=== PATIENT | male | born 1955 | race Caucasian/White ===

== ENCOUNTER 2021-08-24 05:26 | Emergency (ER) | payer MEDICARE, BC, SELFPAY ==
--- NOTE | ~2021-08-24 | XR_ITS ---
XR hand RT 2V DATE: 08/24/2021 06:00 INDICATION: Fall. First digit dislocation suspected. TECHNIQUE: Portable AP and lateral views COMPARISON: 02/10/2013 right hand FINDINGS: There is dislocation at the first metacarpophalangeal joint. No other fracture or dislocation is evident. IMPRESSION: Dislocation at the first metacarpophalangeal joint Reviewed, dictated and finalized at location A.
--- NOTE | ~2021-08-24 | XR_ITS ---
XR hand RT 2V DATE: 08/24/2021 06:14 INDICATION: Post reduction examination; dislocation of the first metacarpophalangeal joint TECHNIQUE: Portable AP and lateral views COMPARISON: 08/24/2021 prereduction right hand radiographs FINDINGS: There is reduction of the dislocation at the first metacarpophalangeal joint. No fracture i s evident. IMPRESSION: Reduction of first metacarpophalangeal joint dislocation Reviewed, dictated and finalized at location A.
[2021-08-24 05:41] VITALS: BP 159/105; PULSE 84; RESP 21; TEMP 36.6; O2SAT 99
--- NOTE | 2021-08-24 05:44 | ED.UPPEXIN ---
HPI - Extremity Injury (Upper) General Chief Complaint: Extremity Injury, Upper Stated Complaint: thumb injury Time Seen by Provider: 08/24/21 05:36 Source: patient History of Present Illness HPI narrative: Patient presents with hand injury. Patient ports he was walking down the hallway when he tripped on some clutter in the hallway and fell on outstretched hand. Noted immediate pain to his right thumb that is achy, constant, worse with any sort of movement of his hand, does not radiate. He also noted his thumb appeared deformed he was concern for broken finger so came to the ER for evaluation. He denies numbness reports he is right-hand dominant denies striking his head he denies use of any blood thinners denies any loss of conscious. Related Data Allergies Allergy/AdvReac Type Severity Reaction Status Date / Time lidocaine [From Xylocaine] Allergy Unknown Verified 08/24/21 05:45 Review of Systems Review of Systems: CONSTITUTIONAL: Denies fever, chills, or sweats. EYES: Denies visual changes, redness, or discharge. ENT: Denies rhinorrhea, congestion, sore throat, or otalgia. CARDIOVASCULAR: Denies chest pain, palpitations, or edema. RESPIRATORY: Denies cough or dyspnea. GASTROINTESTINAL: Denies abdominal pain, nausea, vomiting, or diarrhea. GENITOURINARY: Denies dysuria or hematuria. SKIN: Denies rash or itching. MUSCULOSKELETAL: Denies back pain, joint pain, or myalgia. NEUROLOGIC: Denies headache, numbness, dizziness, or weakness. PSYCHIATRIC: Denies anxiety or depression. All systems reviewed & are unremarkable except as noted in HPI and below Exam Narrative: GENERAL: Well-appearing, well-nourished, and in no acute distress. HEAD: Normocephalic, atraumatic. EYES: PERRLA and EOMI. ENT: Nares clear, no rhinorrhea or epistaxis. Mucous membranes moist. NECK: Supple. No masses. No JVD EXTREMITIES: Obvious deformity at the MCP joint of the first digit on the right hand there is exquisite tenderness to that area there is less than 2 seconds cap refill distal deformity with sensation intact to light touch. There is no focal tenderness at the snuffbox no limitation range of motion on the right wrist no other focal areas of bony tenderness on the right hand SKIN: Warm, dry, no rash. NEURO: No focal deficits. Alert and oriented x3. PSYCH: Normal mood and affect. Course Reevaluation(s) Reevaluation #1: Thumb spica in place. Patient's finger remains neurovascularly intact. Date: 08/24/21 Time: 06:45 Vital Signs Vital signs: Vital Signs Temperature 36.6 C 08/24/21 05:41 Pulse Rate 84 08/24/21 05:41 Respiratory Rate 21 H 08/24/21 05:41 Blood Pressure 159/105 H 08/24/21 05:41 Pulse Oximetry 99 08/24/21 05:41 Temperature 36.6 C 08/24/21 05:41 Pulse Rate 67 08/24/21 06:51 Respiratory Rate 13 08/24/21 06:51 Blood Pressure 147/95 H 08/24/21 06:51 Pulse Oximetry 98 08/24/21 06:51 Procedures Orthopedic Joint Reduction Joint #1: Orthopedic Joint Reduction Date: 08/24/21 Orthopedic Joint Reduction Time: 06:00 Time Out Performed: No Side: right Joint Reduction Location: finger Analgesia: none Pre-Procedure Neuro Vascular Exam: normal Local Anesthesia: none Technique used: traction/counter-traction Post-reduction neuro exam: intact Post-reduction vascular: intact Post Reduction X-Ray Obtained: Yes Post Reduction X-Ray Results: reduced Splint Applied: Yes Patient Tolerated Procedure: well Orthopedic Splinting/Casting Injury #1: Splinting/Casting Date: 08/24/21 Splinting/Casting Time: 06:36 Side: right Upper Extremity Injury Location: hand Upper Extremity Immobilizer: thumb spica Splint: customized in ED Pre-Procedure Neuro Vascular Exam: normal Post-Procedure Neuro Vascular Exam: normal MDM - Extremity Injury (Upper) MDM Narrative Medical decision kyaw
[2021-08-24 06:18] VITALS: BP 149/93; PULSE 72; RESP 14; O2SAT 100
[2021-08-24 06:51] VITALS: BP 147/95; PULSE 67; RESP 13; O2SAT 98
== END 2021-08-24 06:52 | disposition home or self-care (01) ==
PROVIDERS: Emergency Provider Emergency Medicine; PCP Registered Nurse
DX: S63.114A Dislocation of metacarpophalangeal joint of right thumb, initial encounter (principal); W18.09XA Striking against other object with subsequent fall, initial encounter
CPT/HCPCS: 26641; 26675; 26700; 73120; 99285

== ENCOUNTER 2021-10-10 11:00 | Outpatient (RCR) | payer MEDICARE, BC, SELFPAY ==
--- NOTE | 2021-09-05 13:29 | OTOPEVAL ---
OCCUPATIONAL THERAPY INITIAL EVALUATION REPORT 09/05/21 Thank you for referring Driss Olson to [facility].? The patient is scheduled to be seen for therapy? 1x/week for 4 weeks. Please review, sign, date and return this plan of care JOHANNA. I agree with and certify that the following plan of care is medically necessary. Referring Physician Date Referring Provider: Campos Holder MD *OT Outpatient Evaluation Start: 09/05/21 12:25 Therapy Assessment Status Assessment Status Assessment Status Evaluation Outpatient Past Medical History Past Medical History No Past Medical/Surgical History Patient/Family Denies Significant Past Medical/ Surgical History Evaluation Information Problem Diagnosis Stiff right 1st MP joint Cause Dorsal dislocation of MP joint 08/24/21 Prior Level of Function Activity Level (Last 3 Months) Occupation service parts driver Hand Dominance Right Activity of Daily Living Ability Independent Pain Assessment Timing of Pain Assessment Timing of Pain Assessment Assessment Pain Scale Pain Scale Used Numeric (1 - 10) Self Report Pain Assessment Right Thumb(s) Reported Pain Level 3 Lowest Pain Intensity 0 Greatest Pain Intensity 8 Pain Score Pain Score 3: Self Report Interventions Used Interventions Used By Clinicians Education,Paraffin Upper Extremity Range of Motion Wrist Range of Motion Right Reason Not Measured WNL/Right Finger Range of Motion Right Reason Not Measured WNL/Right Thumb Range of Motion Left Thumb MCP Flexion - Active 50 Thumb IP Flexion - Active 90 Thumb CMC Radial Abduction - Active 50 Thumb CMC Palmar Abduction - Active 60 Opposition to 2nd Digit Tip 0 Opposition to 3rd Digit Tip 0 Opposition to 4th Digit Tip 0 Opposition to 5th Digit Tip 0 Opposition to 5th Digit Base 0 Right Thumb MCP Flexion - Active 20 Thumb IP Flexion - Active 35 Thumb IP Flexion - Passive 70 Thumb CMC Radial Abduction - Active 50 Thumb CMC Palmar Abduction - Active 60 Opposition to 2nd Digit Tip 0 Opposition to 3rd Digit Tip 0 Opposition to 4th Digit Tip 0 Opposition to 5th Digit Tip 0 Opposition to 5th Digit Base 4 Thumb Range of Motion Comments When trying to oppose to the base of V, the thumb reaches the DIP of V only due to stiffness and pain at the MCP joint. Palpation Assessment Palpation Palpation Pain with palpation to the ulnar aspect of the thumb's
--- NOTE | 2021-10-02 12:04 | OTOPEVAL ---
OCCUPATIONAL THERAPY RE-EVALUATION REPORT 10/02/21 Patient presents today for OT re-evaluation. Today is just shy of 6 weeks post injury. His ROM has returned to normal limits, with pain reaching 6/10 with maximal thumb opposition. Business Change Manager and pinch strength measurements today show residual weakness and increase in pain to 8/10 with pinch strength testing. Instructed in gentle strengthening and recommended that he completes only if pain is 3/10 or less with these exercises. He may be over stressing the joint with how often he is completing his ROM exercises. The plan moving forward - begin light resistive strengthening to help with the stability of the MCP joint, continue to work on functional mechanics and stability, and progress as pain allows. Plan to have patient follow up weekly to assess progress and will send another formal reassess report in 4 weeks. Thank you for referring Driss [facility]anneth [facility] The patient is scheduled to be seen for therapy?1x/week for 4 weeks. Please review, sign, date and return this plan of care JOHANNA. I agree with and certify that the following plan of care is medically necessary. Referring Physician Date Referring Provider: Campos Holder MD *OT Outpatient Re-Evaluation Start: 09/05/21 12:25 Problem Diagnosis Stiff right 1st MP joint Cause Dorsal dislocation of MP joint 08/24/21 Subjective Information OT began on 09/05/21 and he Query Text:As Reported By Patient/ has participated in 4 sessions Family . He verbalizes excellent compliance with HEP. He states that since beginning therapy he has made a lot of progress - noting less pain and improved mobility of the thumb. He states he no longer has burning/shooting pain up the thumb, only feeling it in the palm. He does not wear the thumb spica brace at home, only when leaving the home. States he's having difficulty with strength. He reports being unable to use his left thumb to push in the button on his shifter in his car. Picking up cylindrical objects , such as cups, continues to be uncomfortable, rating at 3/ 10 pain. Pain Assessment Timing of Pain Assessment Timing of Pain Assessment Assessment Pain Scale Pain Scale Used Numeric (1 - 10) Self Report Pain Assessment Right Thumb(s) Reported Pain Level 2 Lowest Pain Intensity 2 Greatest Pain Intensity 6 Pain Score Pain Score 2: Self Report Additi
--- NOTE | 2021-11-05 13:00 | PCOTNOTE ---
OCCUPATIONAL THERAPY DISCHARGE NOTIFICATION 11/05/21 Patient:Driss Olson Date of :1955 Driss was re-assessed by therapy on 10/02/21 where the plan was to continue to progress resistive exercise to further increase the stability and mechanics of the thumb. He only attended 1 follow up session after that re-eval where he was issued his final HEP. Another formal re-evaluation was not completed. He has been following up with MD for injections and further return to work recommendations. Called the patient today and discussed discharging from therapy as he has all the necessary materials at this time. He verbalized that he is in agreement with this plan. He does state his thumb continues to have pain with hand use, however. It does not appear that additional therapy will be beneficial as he is independent with all exercises. Would strongly recommend that he relaxes on how often he does the exercises as he tends to be over stressing the thumb during this period of healing. If you feel as though additional therapy visits are needed in the future, please don't hesitate to send him back. Thank you for referring this patient to [facility]. Please review, sign, date and return this discharge summary JOHANNA. I have been updated about the patient's current status and I agree with discharge from the above service at this time. Referring Physician Date Referring Provider: Campos Holder MD
== END 2021-11-06 10:14 | disposition home or self-care (01) ==
LOC: ANHOT 11:00
PROVIDERS: PCP Registered Nurse; Visit Provider Plastic Surgery
DX: M25.641 Stiffness of right hand, not elsewhere classified (principal)
CPT/HCPCS: 97018; 97110; 97165

== ENCOUNTER 2021-11-12 10:20 | Outpatient (CLI) | payer MEDICARE, BC, SELFPAY ==
--- NOTE | ~2021-11-12 | US_ITS ---
EXAMINATION: US carotid duplex BI DATE: 11/12/2021 11:09 INDICATION: TECHNIQUE: Grayscale, color Doppler, and pulsed Doppler images of the cervical carotid arteries were obtained. The degree of vessel stenosis is placed in one of the following categories: normal, <50%, 5 0-69%, >=70% but less than near-occlusion, near-occlusion, or total occlusion. Note that percent sten osis relative to normal distal artery lumen diameter is indirectly measured from velocity measurement s as described by Joaquín, et al. Radiology 2003; 229:340-346. Notes: Normal: Peak systolic velocity <125 centimeters/sec and no plaque <50%. Peak systolic velocity <125 ( EDV <40; ICA/CCA PSV ratio <2.0; used these factors only a tandem lesions or low cardiac output or co ntralateral disease) 50-69 %: PSV 125-230 (EDV 40-100; ratio 2-4) >= 70% but less than near occlusion: PSV greater than 230 (EDV > 100; ratio> 4.0) Near Occlusion: PSV that is variable; markedly narrowed lumen Occlusion: Absent flow on color/spectral Doppler and no lumen on gallegos scale. COMPARISON: None. FINDINGS: RIGHT: The right common carotid artery (CCA) peak systolic velocity (PSV) is 79 cm/s. The right internal car otid artery (ICA) PSV is 58 cm/s. The right ICA end-diastolic velocity (EDV) is 22 cm/s. The right IC A/CCA PSV ratio is 0.7. The external carotid artery (ECA) PSV is 55 cm/s. There is antegrade flow in the right vertebral artery. LEFT: The left CCA PSV is 66 cm/s. The left ICA PSV is 54 cm/s. The left ICA EDV is 20 cm/s. The left ICA/C CA PSV ratio is 0.8. The ECA PSV is 67 cm/s. There is antegrade flow in the left vertebral artery. IMPRESSION: 1. Less than 50% stenosis in the right internal carotid artery by sonographic criteria. 2. Less than 50% stenosis in the left internal carotid artery by sonographic criteria. Reviewed, dictated and finalized at location A. AL CLERK IMPRESSION: 1. Less than 50% stenosis in the right internal carotid artery by sonographic boston raya. 2. Less than 50% stenosis in the left internal carotid artery by sonographic albert joyner.
== END 2021-11-12 10:21 | disposition home or self-care (01) ==
LOC: ANHIMG 10:27
PROVIDERS: PCP Registered Nurse; Visit Provider Registered Nurse
DX: R42 Dizziness and giddiness (principal); I65.23 Occlusion and stenosis of bilateral carotid arteries
CPT/HCPCS: 93880

== ENCOUNTER 2022-01-01 10:32 | Outpatient (CLI) | payer MEDICARE, SELFPAY ==
--- NOTE | 2022-01-04 18:06 | WPDHOLTEREM ---
Holter/Event Monitor Holter/Event Monitor Date of procedure: 01/01/22 Holter/Event Procedure: 48 Hr Holter Monitor Indications: Palpitations Conclusion: 1. 48 hour holter monitor on 01/01/22. 2. Underlying rhythm is sinus rhythm. HR range 48-119 bpm; average HR 74 bpm. 3. There are 162 premature supraventricular complexes and 2 supraventricular triplets. No supraventricular tachycardia. 4. There are 198 premature ventricular complexes, 2 ventricular couplets, and 30 ventricular bigeminy. No ventricular tachycardia. 5. No sinoatrial or atrioventricular blocks. No significant pauses greater than 2 seconds. 6. Patient reports symptoms of racing heart, sweating, shortness of breath, dizziness, heart pounding which demonstrate sinus rhythm, HR range 67-100 bpm with one episode with PVC's.
== END 2022-01-01 10:33 | disposition home or self-care (01) ==
PROVIDERS: PCP Registered Nurse; Visit Provider Registered Nurse
DX: R00.2 Palpitations (principal)
CPT/HCPCS: 93225; 93226

== ENCOUNTER → 2023-09-16 08:46 | Outpatient (CLI) | payer MEDICARE, SELFPAY ==
--- NOTE | ~2023-09-16 | US_ITS ---
EXAMINATION: US aorta [facility] scr[facility] DATE: 09/16/2023 09:01 INDICATION: Abdominal aortic aneurysm screening. TECHNIQUE: Grayscale, color Doppler, and pulsed Doppler images of the aorta and common iliac arteries were obtained. COMPARISON: None. FINDINGS: The aorta is normal in caliber. The right common iliac artery is normal in caliber. The left common i liac artery is normal in caliber. IMPRESSION: 1. No abdominal aortic aneurysm. Reviewed, dictated and finalized at location E.
== END ==
PROVIDERS: PCP Internal Medicine Cardiovascular Disease; Visit Provider Registered Nurse
DX: Z13.6 Encounter for screening for cardiovascular disorders (principal); Z87.891 Personal history of nicotine dependence
CPT/HCPCS: 76706

== ENCOUNTER 2024-06-21 13:54 | Outpatient (CLI) | payer MEDICARE, SELFPAY ==
--- NOTE | 2024-06-21 15:08 | ECG_ITS ---
Test Date: 2024-06-21 15:19:01 Measurements Intervals [place] Rate: 68 P: 39 KS: 172 QRS: 71 QRSD: 114 T: 26 QT: 385 QTc: 411 Interpretive Statements SINUS RHYTHM INCOMPLETE RIGHT BUNDLE BRANCH BLOCK [90+ ms QRS DURATION, TERMINAL R IN V1/V2, 40+ ms S IN I/aVL/V4/V5/V6] NONDIAGNOSTIC SMALL INFERIOR Q-WAVE BORDERLINE ECG No previous ECG available for comparison Electronically Signed On 06-21-2024 17:20:03 CDT by Harrison Cruz M.D.
[2024-06-21 16:23] LABS: Urine Cotinine NEGATIVE
[2024-06-21 16:57] LABS: Hemoglobin A1C 6.6 % (<5.7)
== END 2024-06-21 13:55 | disposition home or self-care (01) ==
LOC: ANHSURGERY 14:01
PROVIDERS: PCP Registered Nurse; Visit Provider Orthopaedic Surgery
DX: M17.11 Unilateral primary osteoarthritis, right knee (principal); Z01.818 Encounter for other preprocedural examination; I45.10 Unspecified right bundle-branch block
CPT/HCPCS: 80307; 83036; 87081; 87181; 93005

== ENCOUNTER 2024-07-12 01:29 | Day surgery (SDC) | payer MEDICARE, SELFPAY ==
[2024-06-21 14:07] VITALS: BMI 34.0
--- NOTE | 2024-06-21 14:45 | PC.NURSE ---
Addendum entered by Shari Juarez RN 06/21/24 14:52: MAY TAKE TYLENOL IF NEEDED FOR PAIN Original Note: Report to the Outpatient Waiting Room, entrance under the green pavilion located off [facility], at time ___6:00 AM____ on date _07/12/24 . Planned Procedure Time: ___7:30 AM . Time changes happen often and if your time is changed the preop area will call you the afternoon before. - You and your visitor will be asked to self-screen and do not enter if you have any COVID symptoms. - A mask is optional within the hospital at this time. Patients may have clear liquids (water, carbonated beverages, clear teas, apple juice) until 3 hours prior to surgery (4:30AM)with a maximum of 20 ounces. - No food from midnight until time of surgery - Infants may have breast milk until 4 hours before surgery, infant formula 6 hours prior to surgery. - Children will be allowed to drink immediately following surgery. If applicable, please bring a bottle or sippy cup to assist with drinking. Juice, water, soda, and popsicles are readily available. For infants on formula, please bring formula the day of surgery. Pacifiers are allowed. Take the following medications with a SIP of water the morning of surgery: ___NONE DO NOT STOP ANY OF YOUR OTHER PRESCRIPTION MEDICATIONS PRIOR TO SURGERY ?EXCEPT THE FOLLOWING Medications to discontinue per physician __HOLD DICLOFENAC 7 DAYS PRE OP PER DR SARAVIA LAST DOSE 07/04/24___MAY CONTINUE ASPIRIN BUT DON'T TAKE MORNING OF SURGERY PER DR SARAVIA. HOLD ALL VITAMINS AND SUPPLEMENTS 3 DAYS PRE OP PER ANESTHESIA.LAST DOSE 07/08/24 Please no make-up, nail armenian, hairspray, perfume, deodorant, or body powder the day of surgery. No jewelry (including any body piercings) or valuables the day of surgery, leave them at home. Please take a shower or bath the night before, or the morning of, surgery with an antibacterial soap. Wear comfortable, loose fitting clothing. Children are encouraged to wear pajamas. - Jewelry must be removed prior to entering the operating room. Rings and piercings that are not removed may be cut off. - The hospital will not accept responsibility for valuables. - Please leave all valuables, including medications, at home the day of surgery. If you are going home after surgery, a licensed bus driver must drive you home. - NO public transportation without another adult if you receive anesthesia. - We recommend that an adult stay with you for 24 hours following discharge. - We also recommend that you do not drive, make important decision, drink alcoholic beverages, or take any drugs that were not prescribed by your health care provider for at least 24 hours after your discharge ty Follow any additional instructions given to you from your surgeon. If you or anyone in your household have experienced Covid symptoms in the past week, please notify your surgeon or the nurse liaison at the phone number below for possible testing. VERBAL AND WRITTEN instructions given to __PATIENT AND AMADA and asked if any additional questions and then verbalized understanding. Patient advised to call surgeon office or pre surgery nurse liaison [phone] if any additional questions.
[2024-06-21 15:10] VITALS: BP 135/85; PULSE 73; RESP 18; TEMP 36.6; O2SAT 97
--- NOTE | 2024-07-09 08:56 | PM.IMHP ---
H&P: HPI History of Present Illness Date/Time: 07/09/24 08:56 Chief Complaint: 69-year-old male who presents today for a right total knee arthroplasty. He has been having pain in this knee for years. He has moderately severe medial compartment osteoarthritis. He has been on diclofenac 75 mg once a day for several years. He has had cortisone injections in the past. Last 1 was in February of this year which gave him minimal improvement of his symptoms. Patient has reached a point where he feels the knee is bothering him on a daily basis and he is ready proceed with total knee arthroplasty at this point. Review of Systems Review of Systems: All systems reviewed & are unremarkable except as noted in HPI and below PMFSH Past Medical History Medical History Cancer Diabetes GERD (gastroesophageal reflux disease) Hearing loss, bilateral Prostate calculus Subjective tinnitus of both ears Surgical History Surgical History History of appendectomy History of arthroscopic knee surgery right x 2 History of prostate surgery Family History Family History Father Cancer Heart disease Mother Cancer Hypertension Heart disease Sibling Cancer Social History Social History (Updated 05/19/24 @ 10:14 by Brit Verduzco CMA) Smoking packs per day: 1 Smoking cigarettes per day: 20.0 Years smoked: 5 Smoking pack-years: 5.00 Smoking status: Former smoker Tobacco type: cigarettes Smoking end date: 11/17/79 Additional smoking assessment comments: DENIES ANY FORM OF TOBACCO USE Alcohol intake: current Drinks per week: 14 Alcohol use details: BEER Substance use: never Do You Feel Safe in your Home?: Yes Lack of Transportation: No Lack of Food: Never True Current Housing: Decline to Answer Concerned About Future Housing: Decline to Answer Difficulty Paying Gas/Electric Bills: Decline to Answer Difficulty Paying for Meds: Decline to Answer Currently Unemployed: Decline to Answer Education: Decline to Answer Difficulty w/ Childcare or Family Care: Decline to Answer Living arrangements: with family Occupation/Education: retired Spiritual care concerns: No Meds Home Medications and Allergies Home Medications Medication Instructions Recorded Confirmed Type aspirin 81 mg tablet,delayed 81 mg PO DAILY 01/31/22 06/21/24 History release (Adult Aspirin Regimen) cholecalciferol (vitamin D3) 25 25 mcg PO DAILY 01/31/22 06/21/24 History mcg (1,000 unit) capsule ferrous sulfate 325 mg (65 mg 325 mg PO DAILY 01/31/22 06/21/24 History iron) tablet (Feosol) latanoprost 0.005 % eye drops 1 drp EACH EYE HS 01/31/22 06/21/24 History lutein 20 mg capsule 20 mg PO DAILY 01/31/22 06/21/24 History metformin 1,000 mg tablet 1,000 mg PO BID 01/31/22 06/21/24 History multivitamin 1 tablet PO DAILY 01/31/22 06/21/24 History omeprazole 20 mg capsule,delayed 20 mg PO BID 01/31/22 06/21/24 History release rosuvastatin 20 mg tablet 20 mg PO DAILY 01/31/22 06/21/24 History amlodipine 5 mg tablet 5 mg PO DAILY 02/16/24 06/21/24 History icosapent ethyl 1 gram capsule 2 g PO BID 02/16/24 06/21/24 History (Vascepa) acetaminophen 500 mg capsule 500 mg PO PRN PRN Pain 06/21/24 06/21/24 History flaxseed oil 1,000 mg capsule 1,000 mg PO DAILY 06/21/24 06/21/24 History diclofenac sodium 75 mg 75 mg PO BID #60 tabs 06/23/24 Rx tablet,delayed release mupirocin 2 % topical ointment 1 applic topical BID #22 grams 06/23/24 Rx diclofenac sodium 75 mg 75 mg PO BID #60 tabs 07/06/24 Rx tablet,delayed release Allergies Allergy/AdvReac Type Severity Reaction Status Date / Time lisinopril Allergy Unknown Hives Verified 06/21/24 14:08 Exam Narrative: 69-year-old male alert pleasant. He walks with nm
[2024-07-12] VITALS (15 sets, daily range): BP systolic 111–144; BP diastolic 67–93; PULSE 61–106; RESP 9–19; TEMP 35.9–37; O2SAT 91–99
--- NOTE | ~2024-07-12 | XR_ITS ---
Right Knee Technique: Portable AP and crosstable lateral views Clinical History: Status post TKR Findings: Patient is status post total knee replacement. Orthopedic hardware alignment appears anatom ic. No hardware complication is evident. Subcutaneous emphysema and swelling is likely postoperative in nature. No acute osseous fracture is seen. Impression: Status post total knee replacement, without evidence of hardware complication. Reviewed, dictated and finalized at location . Impression: Status post total knee replacement, without evidence of hardware complication.
[2024-07-12] MEDS: ACETAMINOPHEN 500 MG TABLET 1000 MG PO (06:48)
[2024-07-12] MEDS: LACTATED RINGERS 1,000 ML 30 ML IV CONT ×3 (07:00→12:00)
[2024-07-12] MEDS: VANCOMYCIN 1,500 MG/NS 500 ML BAG 250 MG IVPB (07:10)
--- NOTE | 2024-07-12 07:16 | WPDHPUPDATE1 ---
History and Physical Update Update Date/Time: 07/12/24 07:16 History and Physical has been reviewed, including an updated exam of the patient. There are NO changes in the patient's condition. Risks, benefits, and alternatives have been discussed and questions answered. Patient agrees to proceed with procedure.
[2024-07-12] MEDS: TRANEXAMIC ACID 1,000MG/ISO100 1,000 MG/100 ML BAG 200 MG IVPB (07:17)
--- NOTE | 2024-07-12 07:17 | WPDANESEPPF ---
Anes - Initial Pre Proc Eval Procedure: Operation Date: 07/12/24 07:30 Proposed Procedures p Right Total Knee Arthroplasty - Barron Shipley MD Date/Time: 07/12/24 07:17 Surgeon: Barron Shipley MD Pre Op Diagnosis: oa right knee Patient Data Age: 69 Gender: M Height: 1.78 m Weight: 107.7 kg Last Vital Signs Temp 97.8 F 06/21/24 15:10 Pulse 73 06/21/24 15:10 Resp 18 06/21/24 15:10 BP 135/85 06/21/24 15:10 Pulse Ox 97 06/21/24 15:10 O2 Del Method Room Air 06/21/24 15:10 Allergies Allergy/AdvReac Type Severity Reaction Status Date / Time lisinopril Allergy Unknown Hives Verified 07/12/24 06:40 Home Medications Medication Instructions Recorded Confirmed Type aspirin 81 mg tablet,delayed 81 mg PO DAILY 01/31/22 07/12/24 History release (Adult Aspirin Regimen) cholecalciferol (vitamin D3) 25 25 mcg PO DAILY 01/31/22 07/12/24 History mcg (1,000 unit) capsule ferrous sulfate 325 mg (65 mg 325 mg PO DAILY 01/31/22 07/12/24 History iron) tablet (Feosol) latanoprost 0.005 % eye drops 1 drp EACH EYE HS 01/31/22 07/12/24 History lutein 20 mg capsule 20 mg PO DAILY 01/31/22 07/12/24 History metformin 1,000 mg tablet 1,000 mg PO BID 01/31/22 07/12/24 History multivitamin 1 tablet PO DAILY 01/31/22 07/12/24 History omeprazole 20 mg capsule,delayed 20 mg PO BID 01/31/22 07/12/24 History release rosuvastatin 20 mg tablet 20 mg PO DAILY 01/31/22 07/12/24 History amlodipine 5 mg tablet 5 mg PO DAILY 02/16/24 07/12/24 History icosapent ethyl 1 gram capsule 2 g PO BID 02/16/24 06/21/24 History (Vascepa) acetaminophen 500 mg capsule 500 mg PO PRN PRN Pain 06/21/24 07/12/24 History flaxseed oil 1,000 mg capsule 1,000 mg PO DAILY 06/21/24 07/12/24 History diclofenac sodium 75 mg 75 mg PO BID #60 tabs 06/23/24 07/12/24 Rx tablet,delayed release mupirocin 2 % topical ointment 1 applic topical BID #22 grams 06/23/24 Rx Laboratory Tests 07/12/24 07:15 POC Capillary Glucose Pending Patient hx anesthesia problems: none Family hx anesthesia problems: none Results Review: All pre-operative results and documents have been reviewed as part of the pre-operative evaluation. [facility] Past Medical History Medical History Cancer Diabetes GERD (gastroesophageal reflux disease) Hearing loss, bilateral Prostate calculus Subjective tinnitus of both ears Surgical History Surgical History History of appendectomy History of arthroscopic knee surgery right x 2 History of prostate surgery Family History Family History Father Cancer Heart disease Mother Cancer Hypertension Heart disease Sibling Cancer Social History Social History (Updated 05/19/24 @ 10:14 by Brit Verduzco CMA) Smoking packs per day: 1 Smoking cigarettes per day: 20.0 Years smoked: 5 Smoking pack-years: 5.00 Smoking status: Former smoker Tobacco type: cigarettes Smoking end date: 11/17/79 Additional smoking assessment comments: DENIES ANY FORM OF TOBACCO USE Alcohol intake: current Drinks per week: 14 Alcohol use details: BEER Substance use: never Do You Feel Safe in your Home?: Yes Lack of Transportation: No Lack of Food: Never True Current Housing: Decline to Answer Concerned About Future Housing: Decline to Answer Difficulty Paying Gas/Electric Bills: Decline to Answer Difficulty Paying for Meds: Decline to Answer Currently Unemployed: Decline to Answer Education: Decline to Answer Difficulty w/ Childcare or Family Care: Decline to Answer Living arrangements: with family Occupation/Education: retired Spiritual care concerns: No Anes - Eval Final PreProcedure Day of Procedure 07/12/24 07:17 Patient weight: obese Heart: regular rate and
[2024-07-12 07:18] LABS: Glucose Point of Care 145 mg/dl (65-105)
[2024-07-12] MEDS: ceFAZolin 2 GM/D5W 50 ML 2 GM/50 ML BAG IVPB ×4 (07:38→23:37)
[2024-07-12] MEDS: SODIUM CHLORIDE 0.9% IV 37.7 ML, MORPHINE SULFATE INJ (*CRX) 2 MG, ROPivacaine HCL 1% 2... INFILTRATE (08:02)
[2024-07-12] MEDS: ceFAZolin SODIUM 1 GM VIAL 3 GM (08:02)
[2024-07-12] MEDS: GENTAMICIN BONE CEMENT REFOBACIN 1 EACH TOPICAL (09:29)
[2024-07-12] MEDS: TRANEXAMIC ACID 1,000 MG/10 ML AMPUL 1000 MG IV PUSH (10:14)
[2024-07-12] MEDS: KETOROLAC 15 MG/ML VIAL (*BKC) IV PUSH ×3 (11:11→23:26)
--- NOTE | 2024-07-12 11:23 | PM.OP ---
Procedure Note - Brief Procedure Note - Brief Date of procedure: 07/12/24 oa right knee Procedure performed: Right total knee arthroplasty Surgeon: SALIMA Grey Findings: 63 year old male who underwent right total knee arthroplasty on 07/12. I was involved in the procedure including positioning the patient on the OR table and 1st assisting through the time of surgery. Total time spent with 3-1/2 hours
--- NOTE | 2024-07-12 11:28 | W.PM.PROC2 ---
Procedure Note - Detailed Date of Procedure 07/12/24 Pre-op Diagnosis oa right knee Post-op Diagnosis Same Procedure Performed Right total knee arthroplasty Surgeon Barron Shipley MD Customs And Immigration Officer Yessica Anesthesia General Description of Procedure Patient was brought to the operating room and general anesthesia was administered. The right knee was prepped draped usual fashion. He received 2 g Ancef weight based vancomycin 1 g of tranexamic acid preoperatively. There was still a 10 degree flexion contracture under anesthesia and no medial or lateral pseudolaxity. Limb was exsanguinated and tourniquet elevated to 250 mmHg and subsequently to 300 and there was some bleeding through. A 7 in longitudinal midline incision was used and a standard parapatellar arthrotomy utilized. Partial infrapatellar fat pad excision carried out. Quadriceps synovectomy performed. The patellar cartilage was in excellent condition and suitable for non resurfacing. A very limited lateral facetectomy was performed. A guide francis was inserted on femoral canal after aspiration of canal contents using the 5 degree valgus cutting bushing 9 mm of bone removed the distal femur. Next the tibial plateau was cut. We made a skim cut off the posterior medial tibial plateau. He had a significant amount of varus slope as well as posterior slope to his tibial plateau so we made the cut at 1 degree of varus and 1 degree of posterior slope a meniscal remnants were excised PCL recessed. Flexion gap was still too tight. Additional 3 mm of bone removed from the tibial plateau at this time. With this knee flexion was a tight 8 mm medially at 90? of flexion and a tight 12 mm laterally. The femoral sizing guide was applied the distal femur set at 5? of external rotation which matched Whitesides line. Posterior referencing pinholes were placed and we cut with the size 70 vanguard cutting block. A 70 fit well with about a mm of overhang laterally. It was just off the anterior cortex proximally. The 10 CR insert was placed at 90? and we could see that it was much tighter medially than laterally at 90 and in extension. The tibia was prepared. We confirmed a perfectly flat tibial surface cut and sized to a 75 placed at proper rotation and punched. Mid and posteromedial osteophytes were removed from the tibial plateau at this time peeling off enough medial capsule to expose these osteophytes for removal. The 10 CR insert was trialed. The knee came out to full extension with was tighter medially still. In flexion the lateral side opened up about 2.5 mm the medial side was fairly snug with less than a mm of opening with a Hill elevator. I felt this was too tight. I elected to downsize femur at this time. We removed the medial fixation pin from the 67.5 cutting block which allowed us to externally rotate the block another 2? to removed about a mm and half of bone from the posterior aspect of the medial femoral condyle. We pinned this in place with the spring pins and revise the cuts and the 67.5 fit very nicely flush with the anterior cortex and no overhang. We trialed with the 11 insert and this gave a mm of 90? medially mm half laterally and had appropriate anterior drawer stability and with the arthrotomy towel clip still had a little bit of play and had gravity flexion to 135 thought this was optimized. The knee opened up 1-2 medially in extension and 3 laterally but still had a positive bounce. Posterior capsule release was performed on the distal femur. With this the knee came out to full extension. Satisfied with this the lug holes were drilled and has would put the tourniquet down earlier at 90 minutes the limb was re-exsanguinated tourniquet elevated to 300 mmHg. The bony surfaces were prepared with step drill. His bone quality was excellent. The surfaces were irrigated and dried and 2 batches of methylmethacrylate were mixed 1 with gentamicin powder medially applied to the 75 tibial compo
[2024-07-12] MEDS: fentaNYL CITRATE INJ (*CRX) 100 MCG/2 ML VIAL 25 MCG IV PUSH ×3 (11:39→12:31)
[2024-07-12 12:42] LABS: Glucose Point of Care 194 mg/dl (65-105)
[2024-07-12] MEDS: diphenhydrAMINE HCl INJ 50 MG/ML VIAL 12.5 MG IV PUSH (12:56)
--- NOTE | 2024-07-12 14:29 | ADMGEN ---
This patient, Driss Olson, was admitted to [facility] Surg Room 328-01. Patient/family oriented to hospital policies and general routines including ID bracelet, bed and alarms, visiting hours, pain management, procedures, bathroom and other care routines, personal items, smoking policy, room service/diet, and visiting hours. Information on how to activate the Rapid Response Team has been discussed. Patient/Family are encouraged to report perceived risks to care and to ask questions if they do not understand what they are told or what they should do.
[2024-07-12] MEDS: ACETAMINOPHEN 325 MG TABLET 650 MG PO ×3 (14:35→21:49)
[2024-07-12] MEDS: oxyCODONE HCL (*CRX) 5 MG TAB IR PO ×3 (14:36→21:49)
--- NOTE | 2024-07-12 14:37 | P.CONS_ITS ---
Assessment and Plan Assessment and plan (1) Status post total right knee replacement: Code(s): Z96.651 - Presence of right artificial knee joint Status: Acute Assessment and Plan: 07/12/24: * Patient elective right total knee arthroplasty with Dr. Shipley today * Continue pain control * PT and OT ordered * Full weight-bearing status * Continue cefazolin and vancomycin postop * Will start Keflex tomorrow * Continue stool softener and polyethylene glycol * Continue pain control * Continue Celebrex * Incentive spirometer q.2 hours while awake * SCDs for now, will defer to Orthopedic surgery team for Eliquis * Continue neurovascular checks * May apply ice as needed * Titrate O2 for sat greater than 92% (2) GERD (gastroesophageal reflux disease): Code(s): K21.9 - Gastro-esophageal reflux disease without esophagitis Status: Acute Assessment and Plan: 07/12/24: * Continue Pepcid (3) Diabetes: Code(s): E11.9 - Type 2 diabetes mellitus without complications Status: Acute Assessment and Plan: 07/12/24: * Blood sugars ranging 145-194 * Hgb A1C 6.6 on 06/21/2024 * Accu checks AC/HS * High-dose SSI ordered * hypoglycemic protocol in place * Diabetic diet ordered * Metformin placed on hold HPI Data of Consult Date/Time: 07/12/24 14:37 Requesting Physician: Barron Shipley MD Primary Care Provider: Lucila Tang, [employer] LE[employer] Consult Narrative Narrative: Driss Olson is a 69 year old male with a significant past medical history of diabetes, GERD, bilateral hearing loss, former smoker, alcohol abuse who presented to the hospital this morning for elective right total knee arthroplasty with Dr. Shipley. Patient denies any fever, chills, nausea, vomi ting, diarrhea, abdominal pain, chest pain, shortness a breath. Patient reports tremors in bilateral hands ever since returning from surgery is likely related to the anesthesia. We were consulted for medical management while inpatient. Review of Systems Review of Systems: All systems reviewed & are unremarkable except as noted in HPI and below Constitutional: Constitutional: Reports as per HPI and Reports no additional constitutional complaints Eyes: Eyes: Reports as per HPI and Reports no additional eye complaints ENT: Reports system reviewed and no additional complaints, except as documented and Reports as per HPI Cardiovascular: Cardiovascular: Reports as per HPI and Reports no additional cardiovascular complaints Respiratory: Respiratory: Reports as per HPI and Reports no additional respiratory complaints Gastrointestinal: Gastrointestinal: Reports as per HPI and Reports no additional gastrointestinal complaints Genitourinary: Genitourinary: Reports no additional male genitourinary complaints and Reports as per HPI Musculoskeletal: Musculoskeletal: Reports no additional musculoskeletal c omplaints and Reports as per HPI Integumentary/Breasts: Skin/Breast: Reports system reviewed and no additional complaints, except as docu and Reports as per HPI Neurologic: Reports system reviewed and no additional complaints, except as documented and Reports as per HPI Psychiatric: Psychiatric: Reports no additional psychiatric complaints and Reports as per HPI [facility] Past Medical History Medical History Cancer Diabetes GERD (gastroesophageal reflux disease) Hearing loss, bilateral Prostate
--- NOTE | 2024-07-12 14:37 | WPDCN ---
Assessment and Plan Assessment and plan (1) Status post total right knee replacement: Code(s): Z96.651 - Presence of right artificial knee joint Status: Acute Assessment and Plan: 07/12/24: Patient elective right total knee arthroplasty with Dr. Shipley today Continue pain control PT and OT ordered Full weight-bearing status Continue cefazolin and vancomycin postop Will start Keflex tomorrow Continue stool softener and polyethylene glycol Continue pain control Continue Celebrex Incentive spirometer q.2 hours while awake SCDs for now, will defer to Orthopedic surgery team for Eliquis Continue neurovascular checks May apply ice as needed Titrate O2 for sat greater than 92% (2) GERD (gastroesophageal reflux disease): Code(s): K21.9 - Gastro-esophageal reflux disease without esophagitis Status: Acute Assessment and Plan: 07/12/24: Continue Pepcid (3) Diabetes: Code(s): E11.9 - Type 2 diabetes mellitus without complications Status: Acute Assessment and Plan: 07/12/24: Blood sugars ranging 145-194 Hgb A1C 6.6 on 06/21/2024 Accu checks AC/HS High-dose SSI ordered hypoglycemic protocol in place Diabetic diet ordered Metformin placed on hold HPI Data of Consult Date/Time: 07/12/24 14:37 Requesting Physician: Barron Shipley MD Primary Care Provider: Lucila Tang, [employer] Consult Narrative Narrative: Driss Olson is a 69 year old male with a significant past medical history of diabetes, GERD, bilateral hearing loss, former smoker, alcohol abuse who presented to the hospital this morning for elective right total knee arthroplasty with Dr. Shipley. Patient denies any fever, chills, nausea, vomiting, diarrhea, abdominal pain, chest pain, shortness a breath. Patient reports tremors in bilateral hands ever since returning from surgery is likely related to the anesthesia. We were consulted for medical management while inpatient. Review of Systems Review of Systems: All systems reviewed & are unremarkable except as noted in HPI and below Constitutional: Constitutional: Reports as per HPI and Reports no additional constitutional complaints Eyes: Eyes: Reports as per HPI and Reports no additional eye complaints ENT: Reports system reviewed and no additional complaints, except as documented and Reports as per HPI Cardiovascular: Cardiovascular: Reports as per HPI and Reports no additional cardiovascular complaints Respiratory: Respiratory: Reports as per HPI and Reports no additional respiratory complaints Gastrointestinal: Gastrointestinal: Reports as per HPI and Reports no additional gastrointestinal complaints Genitourinary: Genitourinary: Reports no additional male genitourinary complaints and Reports as per HPI Musculoskeletal: Musculoskeletal: Reports no additional musculoskeletal complaints and Reports as per HPI Integumentary/Breasts: Skin/Breast: Reports system reviewed and no additional complaints, except as docu and Reports as per HPI Neurologic: Reports system reviewed and no additional complaints, except as documented and Reports as per HPI Psychiatric: Psychiatric: Reports no additional psychiatric complaints and Reports as per HPI [facility] Past Medical History Medical History Cancer Diabetes GERD (gastroesophageal reflux disease) Hearing loss, bilateral Prostate calculus Subjective tinnitus of both ears Surgical History Surgical History History of appendectomy History of arthroscopic knee surgery right x 2 History of prostate surgery Family History Family History Father Cancer Heart disease Mother Cancer Hypertension Heart disease Sibling Cancer Social History Social History Smoking
--- NOTE | 2024-07-12 15:41 | PCPTNOTE ---
On 07/12/24, the student, [Rubina Blanco], provided care and completed [facility] documentation on this patient. I have reviewed the student's documentation and agree with the findings.
[2024-07-12 16:36] LABS: Glucose Point of Care 291 mg/dl (65-105)
[2024-07-12] MEDS: SENNA/DOCUSATE SODIUM TABLET 2 TAB PO (19:01)
[2024-07-12] MEDS: metFORMIN HCL 500 MG TABLET 1000 MG PO (19:01)
[2024-07-12] MEDS: VANCOMYCIN 1,000 MG/NS 250 ML 1,000 MG/250 ML BAG 250 MG IVPB (19:54)
[2024-07-12 21:08] LABS: Glucose Point of Care 178 mg/dl (65-105)
[2024-07-12] MEDS: FAMOTIDINE 20 MG TABLET PO (21:49)
[2024-07-12] MEDS: CEPHALEXIN 500 MG CAPSULE PO (23:26)
[2024-07-13] MEDS: ACETAMINOPHEN 325 MG TABLET 650 MG PO ×3 (01:21→09:29)
[2024-07-13] MEDS: oxyCODONE HCL (*CRX) 5 MG TAB IR PO ×3 (01:21→09:30)
[2024-07-13 04:00] VITALS: BP 125/82; PULSE 78; RESP 18; TEMP 36.2; O2SAT 97
[2024-07-13] MEDS: CEPHALEXIN 500 MG CAPSULE PO ×2 (06:00→12:01)
[2024-07-13] MEDS: VANCOMYCIN 1,000 MG/NS 250 ML 1,000 MG/250 ML BAG 250 MG IVPB (06:01)
[2024-07-13] MEDS: KETOROLAC 15 MG/ML VIAL (*BKC) IV PUSH (06:01)
--- NOTE | 2024-07-13 06:52 | PM.PNORT ---
Subjective Subjective Date/Time Seen: 07/13/24 06:52 Interval history: Postop day 1 patient is alert. He is afebrile vital signs are stable. Dressing is intact Labs are pending. Neurovascularly he is intact. Patient was up walking yesterday with physical therapy soft tissue block has worn off he is having a little bit more soreness this morning tolerable with the pain medicine. The plan will be to have the patient work with therapy this morning and if he is doing very well. If patient feels he needs a 2nd therapy session he will stay till later today and then discharge to home this afternoon. Objective Data Vital Signs Vital Signs: Vital Signs - 24 hr 07/12/24 07:27 07/12/24 11:15 07/12/24 11:30 Temperature 97.8 F 98.4 F Pulse Rate 69 106 H 86 Respiratory Rate 16 15 12 Blood Pressure 138/74 139/93 H 126/76 Pulse Oximetry 98 97 97 Oxygen Delivery Room Air Simple Face Mask Simple Face Mask Oxygen Flow Rate 8 8 07/12/24 11:45 07/12/24 12:00 07/12/24 12:15 Temperature Pulse Rate 84 84 83 Respiratory Rate 13 14 9 L Blood Pressure 125/74 121/74 113/74 Pulse Oximetry 97 91 94 Oxygen Delivery Simple Face Mask Room Air Room Air Oxygen Flow Rate 8 07/12/24 12:30 07/12/24 13:00 07/12/24 13:20 Temperature 97.5 F L Pulse Rate 76 79 76 Respiratory Rate 12 12 16 Blood Pressure 111/68 113/67 128/87 Pulse Oximetry 95 96 98 Oxygen Delivery Nasal Cannula Nasal Cannula Nasal Cannula Oxygen Flow Rate 2 2 2 07/12/24 14:40 07/12/24 13:45 07/12/24 14:00 Temperature 97.2 F L 97.0 F L Pulse Rate 81 82 Respiratory Rate 18 19 Blood Pressure 130/69 131/74 Pulse Oximetry 99 98 Oxygen Delivery Room Air Oxygen Flow Rate 07/12/24 14:30 07/12/24 15:30 07/12/24 19:15 Temperature 96.7 F L 97.4 F L 98.6 F Pulse Rate 87 85 61 Respiratory Rate 19 18 18 Blood Pressure 144/79 H 135/68 143/90 H Pulse Oximetry 96 98 93 Oxygen Delivery Oxygen Flow Rate 07/12/24 20:00 07/12/24 23:36 07/13/24 04:00 Temperature 98.3 F 97.1 F L Pulse Rate 82 78 Respiratory Rate 18 18 Blood Pressure 128/78 125/82 Pulse Oximetry 98 97 Oxygen Delivery Room Air Oxygen Flow Rate Intake/Output Intake/Output: Intake & Output 07/10/24 07/11/24 07/12/24 07/13/24 23:59 23:59 23:59 23:59 Intake Total 3730 600 Balance 3730 600 Meds/Results Medications: Active Medications Generic Name Dose Route Start Last Admin Trade Name Freq PRN Reason Stop Dose Admin Acetaminophen 650 mg 07/12/24 14:00 07/13/24 06:00 Acetaminophen 325 Mg Tablet PO 650 mg Q4H RONIT Administration Amlodipine Besylate 5 mg 07/13/24 09:00 Amlodipine Besylate 5 Mg Tablet PO DAILY RONIT Apixaban 2.5 mg 07/13/24 09:00 Apixaban 2.5 Mg Tablet PO 07/24/24 21:01 Q12HR RONIT Celecoxib 100 mg 07/13/24 08:00 Celecoxib 100 Mg Capsule PO DAILY@0800 RONIT Cephalexin HCl 500 mg 07/13/24 00:00 07/13/24 06:00 Cephalexin 500 Mg Capsule PO 500 mg Q6HR RONIT Administration Dextrose 12.5 gm 07/12/24 14:51 Dextrose 50% 25 Gm/50 Ml Syringe IV PUSH PRN PRN Hypoglycemia Protocol Diphenhydramine HCl 25 mg 07/12/24 13:30 Diphenhydramine Hcl Inj 50 Mg/Ml Vial IV PUSH Q6H PRN Itching Famotidine 20 mg 07/12/24 21:00 07/12/24 21:49 Famotidine 20 Mg Tablet PO 20 mg Q12HR RONIT Administration Glucagon 1 mg 07/12/24 14:51 Glucagon For Inj 1 Mg Vial IM PRN PRN Hypoglycemia Protocol Glucose 15 gm 07/12/24 14:51 Glucose Oral Gel 15 Gm Of Glucse In 37.5 Gm Tube PO PRN PRN Hypoglycemia Protocol Hydromorphone HCl 0.5 mg 07/12/24 13:30 Hydromorphone Hcl Inj (*Crx) 1 Mg/Ml Syr IV PUSH Q2H PRN Breakthrough Pain Rated 4-6 or NPO Cefazolin Sodium 2 gm in 50 mls @ 100 mls/hr 07/12/24 16:00 07/13/24 06:12 Ancef 2 Gm/D5w 50 Ml IVPB 07/13/24 08:29 Infused Q8H RONIT Infusion Vancomycin HCl 1,000 mg
--- NOTE | 2024-07-13 07:00 | PM.DS ---
DS: Admitting Diagnosis Discharge Date 07/13 Admitting Diagnosis Right knee DJD DS: Discharge Diagnosis Discharge Diagnosis (1) Status post total right knee replacement: Code(s): Z96.651 - Presence of right artificial knee joint Status: Acute DS: Summary Hospital Course Hospital Course: 69-year-old male who underwent right total knee arthroplasty on 07/13. He underwent the procedure without complications postoperatively he has been afebrile and vital signs are stable. Neurovascularly he is intact. Dressing is dry and intact. Patient was up walking with physical therapy the day of surgery. Overall pain well controlled with scheduled Tylenol every 4 as well as oxycodone 5 mg. He is also on Celebrex 100 mg a day. He is on Eliquis for DVT prophylaxis for 6 weeks due to his history of DVT in the past. He will also go home with a 10 day course of Keflex due to nasal swab growing oxacillin sensitive Staph aureus. He will also go home Senokot MiraLax. Patient was advised to keep the leg elevated to prevent swelling but do his exercises on an hourly. He has outpatient therapy starting this .. Patient was advised any questions or concerns he is to call the office. Time Spent with Patient Time attestation: Total time spent providing and/or coordinating discharge services: DS: Data Data Completed and Pending Labs on day of discharge: Labs from last 24 hours 07/12/24 07/12/24 07/12/24 21:05 16:34 12:39 POC Capillary Glucose 178 H 291 H 194 H Blood Type Antibody Screen 07/12/24 07/12/24 07:15 06:49 POC Capillary Glucose 145 H Blood Type B Positive Antibody Screen Negative Discharge Plan Discharge Patient Disposition: Home, Self-Care Discharge Instructions: RADHA SARAVIA M.D [facility] [address] [place] [address] [address] [place] [address] POST-OPERATIVE DISCHARGE INSTRUCTIONS TOTAL KNEE ARTHROPLASTY 1. When resting, do not rest in the chair.When resting, lie on your back, with back flat on the couch or bed, with leg elevated above heart to minimize swelling. You may put a pillow under your head. . Significant swelling could indicate a blood clot and if this occurs call the office (or go to the ER) to have a venous ultrasound. Therefore, do not rest in a chair. 2. At least five times a day spend several minutes stretching your knee into flexion while sitting in the chair and also stretching your knee out straight The abilities to bend your knee fully and straighten your knee fully are two most important knee functions to focus on during your recovery. 3. It is ok to sit in chair to eat, use the toilet and receive a guest and to do your stretching exercises, but, sitting in a chair will cause your leg to swell. Therefore, avoid additional time sitting in the chair. and don't rest in the chair. 4. Wound Care: Nursing will give you an additional Mepilex dressing at the time of discharge. Patient to remove the dressing and apply a new Mepilex dressing at home 7 days after surgery and leave the dressing on until seen in office. It is normal to see a small amount of blood on the silver pad of the Mepilex dressing. Its designed to hold small spots of blood. However, if the blood reaches the edge of the pad up to the boarder of the clear membrane that surrounds the pad, the pad is saturated and the Mepilex dressing should be removed and a new Mepilex dressing should be applied. 5. May shower with a Mepilex dressing in place.The water will run off the dressing. 6. Unless you are told otherwise, you may put full weight on your operated leg. Use a walker for balance and practice walking as normally as you can, ideally for a few minutes every hour while you are awake. 7. I would advise against putting ice packs on your knee incision. Ice constricts blood flow which can impar healing of the knee incision. IMPORTANT: Remember not to sit in the ch
[2024-07-13 08:00] VITALS: BP 131/72; PULSE 80; RESP 16; TEMP 36.4; O2SAT 97
[2024-07-13 08:01] LABS: Glucose Point of Care 141 mg/dl (65-105)
[2024-07-13 08:49] LABS: Basophils Absolute Auto 0.1 K/mm3 (0.0-0.1); Basophils Percent Auto 0.6 % (0.2-1.2); Eosinophils Percent Auto 0.2 % (0-4.4); Hematocrit 35.1 % (42.0-52.0); Hemoglobin 11.5 g/dL (14.0-18.0); Immature Granulocyte Absolute 0.03 K/mm3 (0.00-0.031); Immature Granulocyte Percent A 0.3 % (0-0.5); Lymphocytes Absolute Auto 1.67 K/mm3 (0.9-3.2); Lymphocytes Percent Auto 16.6 % (18.3-44.2); Mean Corpuscular HGB Conc 32.8 g/dl (32-36); Mean Corpuscular Hemoglobin 32.5 pg (26-34); Mean Corpuscular Volume 99.2 fl (80-100); Mean Platelet Volume 10.3 fl (7.4-10.4); Monocytes Absolute Auto 1.2 K/mm3 (0.1-0.6); Monocytes Percent Auto 12.1 % (2.6-8.5); Neutrophils Absolute Auto 7.1 K/mm3 (1.3-6.7); Neutrophils Percent Auto 70.2 % (45.5-73.1); Platelet Count Result 168 k/mm3 (150-375); Red Blood Count 3.54 M/mm3 (4.6-6.20); Red Cell Distribution Width 12.1 % (11.5-14.5); White Blood Count 10.1 K/mm3 (4.5-10.0)
[2024-07-13 08:55] LABS: Anion Gap 11 mmol/L (4-12); Blood Urea Nitrogen 17 mg/dL (9-20); Calcium 7.9 mg/dL (8.4-10.2); Carbon Dioxide 24 mmol/L (22-30); Chloride 98 mmol/L (98-107); Estimated CRCL calculation 94 ml/min; Estimated Glomerular Filt Rate > 60; Glucose 119 mg/dL (65-110); Potassium 3.9 mmol/L (3.4-5.0); Sodium 133 mmol/L (137-145)
[2024-07-13] MEDS: ceFAZolin 2 GM/D5W 50 ML 2 GM/50 ML BAG IVPB (09:24)
[2024-07-13] MEDS: SENNA/DOCUSATE SODIUM TABLET 2 TAB PO (09:28)
[2024-07-13] MEDS: amLODIPine BESYLATE 5 MG TABLET PO (09:29)
[2024-07-13] MEDS: APIXABAN 2.5 MG TABLET PO (09:29)
[2024-07-13] MEDS: CELECOXIB 100 MG CAPSULE PO (09:29)
[2024-07-13] MEDS: ROSUVASTATIN 20 MG TABLET PO (09:30)
[2024-07-13] MEDS: CHOLECALCIFEROL 1,000 UNITS TABLET 1000 UNITS PO (09:30)
[2024-07-13] MEDS: MULTIVITAMINS THERAPEUTIC TAB (*BKC) 1 TABLET PO (09:30)
[2024-07-13] MEDS: polyethylene glycoL 3350 17 GM POWD.PACK PO (09:30)
[2024-07-13] MEDS: FAMOTIDINE 20 MG TABLET PO (09:30)
[2024-07-13 11:42] LABS: Glucose Point of Care 146 mg/dl (65-105)
--- NOTE | 2024-07-13 11:56 | PM.IMPN ---
Progress Note: A&P Assessment and Plan (1) Status post total right knee replacement: Code(s): Z96.651 - Presence of right artificial knee joint Status: Acute Assessment and Plan: Status post elective right total knee arthroplasty with Dr. Shipley on 07/12/2024 Continue pain control PT and OT evaluated Full weight-bearing status Continue cefazolin and vancomycin postop switched to oral antibiotics Continue stool softener and polyethylene glycol Continue pain control Continue Celebrex Incentive spirometer q.2 hours while awake SCDs for now, will defer to Orthopedic surgery team for Eliquis Continue neurovascular checks May apply ice as needed Titrate O2 for sat greater than 92% (2) GERD (gastroesophageal reflux disease): Code(s): K21.9 - Gastro-esophageal reflux disease without esophagitis Status: Acute Assessment and Plan: Continue Pepcid (3) Diabetes: Code(s): E11.9 - Type 2 diabetes mellitus without complications Status: Acute Assessment and Plan: Blood sugars trend reviewed Hgb A1C 6.6 on 06/21/2024 Accu checks AC/HS High-dose SSI ordered hypoglycemic protocol in place Diabetic diet ordered Metformin placed on hold. Resume at discharge Subjective Date/time seen: 07/13/24 11:56 Interval history: Doing well postop. Plan for discharge today. Review of Systems Review of Systems: All systems reviewed & are unremarkable except as noted in HPI and below Exam Narrative: General: In no acute distress, well nourished Head: atraumatic, no encephalopathy Eyes: EOMI, PERRLA, sclera clear ENT: moist mucous membranes, nasal passages clear Neck: supple, no JVD, no adenopathy, trachea midline Cardiac: Normal S1 and S2. RRR, No murmur, gallops or friction rubs, peripheral pulses intact. Respiratory: Lungs clear to auscultation, no adventitious lung sounds, currently on room air Gastrointestinal: soft, non-distended, non-tender, normoactive bowel sounds. : voiding without difficulty. Extremities: Limited range of motion to right knee, mild swelling to right knee Skin: OR dressing to the right knee Neuro: Alert and oriented x4, cranial nerves intact, no neuro deficits. Psych: normal mood, normal affect, interactive Objective Data Vital Signs Vital Signs: Vital Signs - 24 hr 07/12/24 12:00 07/12/24 12:15 07/12/24 12:30 Temperature Pulse Rate 84 83 76 Respiratory Rate 14 9 L 12 Blood Pressure 121/74 113/74 111/68 Pulse Oximetry 91 94 95 Oxygen Delivery Room Air Room Air Nasal Cannula Oxygen Flow Rate 2 07/12/24 13:00 07/12/24 13:20 07/12/24 14:40 Temperature 97.5 F L Pulse Rate 79 76 Respiratory Rate 12 16 Blood Pressure 113/67 128/87 Pulse Oximetry 96 98 Oxygen Delivery Nasal Cannula Nasal Cannula Room Air Oxygen Flow Rate 2 2 07/12/24 13:45 07/12/24 14:00 07/12/24 14:30 Temperature 97.2 F L 97.0 F L 96.7 F L Pulse Rate 81 82 87 Respiratory Rate 18 19 19 Blood Pressure 130/69 131/74 144/79 H Pulse Oximetry 99 98 96 Oxygen Delivery Oxygen Flow Rate 07/12/24 15:30 07/12/24 19:15 07/12/24 20:00 Temperature 97.4 F L 98.6 F Pulse Rate 85 61 Respiratory Rate 18 18 Blood Pressure 135/68 143/90 H Pulse Oximetry 98 93 Oxygen Delivery Room Air Oxygen Flow Rate 07/12/24 23:36 07/13/24 04:00 07/13/24 08:00 Temperature 98.3 F 97.1 F L 97.5 F L Pulse Rate 82 78 80 Respiratory Rate 18 18 16 Blood Pressure 128/78 125/82 131/72 Pulse Oximetry 98 97 97 Oxygen Delivery Oxygen Flow Rate Intake/Output Intake/Output: Intake & Output 07/10/24 07/11/24 07/12/24 07/13/24 23:59 23:59 23:59 23:59 Intake Total 3730 1136 Balance 3730 1136 Meds/Results Medications: Active Medications Generic Name Dose Route Start Last Admin Trade Name Theodoreq PRN Reason Stop Dose Admin Acetaminophen 650 mg 07/12/24 14:00 07/13/24 09:29 Acetaminophen 325 Mg Tablet PO 650 mg
[2024-07-13 12:00] VITALS: BP 141/68; PULSE 81; RESP 16; TEMP 36.8; O2SAT 98
--- NOTE | 2024-07-13 14:05 | P.PNAN_ITS ---
Anes - Prog Note Post-Op Date/Time: 07/13/24 14:05 Vital Signs: Last Vital Signs Temp 36.8 C 07/13/24 12:00 Pulse 81 07/13/24 12:00 Resp 16 07/13/24 12:00 BP 141/68 H 07/13/24 12:00 Pulse Ox 98 07/13/24 12:00 O2 Del Method Room Air 07/12/24 20:00 O2 Flow Rate 2 07/12/24 13:20 Pain Score (VAS): 0 I/O: Intake & Output 07/12/24 07/13/24 07/13/24 23:59 07:59 15:59 Intake Total 780 850 286 Balance 780 850 286 Laboratory Tests 07/13/24 07:25 07/13/24 07:25 07/12/24 07/12/24 07/13/24 16:34 21:05 07:25 WBC 10.1 H RBC 3.54 L Hgb 11.5 L Hct 35.1 L MCV 99.2 MCH 32.5 MCHC 32.8 RDW 12.1 Plt Count 168 MPV 10.3 Immature Gran % (Auto) 0.3 Neut % (Auto) 70.2 Lymph % (Auto) 16.6 L [place] % (Auto) 12.1 H Eos % (Auto) 0.2 Baso % (Auto) 0.6 Lymph # (Auto) 1.67 [place] # (Auto) 1.2 H Eos # (Auto) 0.0 Baso # (Auto) 0.1 Abs Immat Gran (auto) 0.03 Absolute Neuts (auto) 7.1 H Absolute Nucleated RBC 0.000 Nucleated RBC % 0.0 Sodium 133 L Potassium 3.9 Chloride 98 Carbon Dioxide 24 Anion Gap 11 BUN 17 Creatinine 0.80 Estim Creat Clear Calc 94 Estimated GFR > 60 Glucose 119 H POC Capillary Glucose 291 H 178 H Calcium 7.9 L 07/13/24 07/13/24 07:46 11:28 WBC RBC Hgb Hct MCV MCH MCHC RDW Plt Count MPV Immature Gran % (Auto) Neut % (Auto) Lymph % (Auto) [place] % (Auto) Eos % (Auto) Baso % (Auto) Lymph # (Auto) [place] # (Auto) Eos # (Auto) Baso # (Auto) Abs Immat Gran (auto) Absolute Neuts (auto) Absolute Nucleated RBC Nucleated RBC % Sodium Potassium Chloride Carbon Dioxide Anion Gap BUN Creatinine Estim Creat Clear Calc Estimated GFR Glucose POC Capillary Glucose 141 H 146 H Calcium Patient Feedback: Patient satisfied with anesthetic care.
== END 2024-07-13 13:35 | disposition home or self-care (01) ==
LOC: ANHSURGERY 06:07 → ANH3MEDSUR 13:54
PROVIDERS: Physician Assistant Surgical; PCP Registered Nurse; Visit Provider Orthopaedic Surgery
PROC: (CPT 27447; principal; 2024-07-12 07:30)
DX: M17.11 Unilateral primary osteoarthritis, right knee (principal); E11.9 Type 2 diabetes mellitus without complications; K21.9 Gastro-esophageal reflux disease without esophagitis; H91.93 Unspecified hearing loss, bilateral; Z87.891 Personal history of nicotine dependence
CPT/HCPCS: 27447; 36415; 73560; 80048; 80307; 82948; 83036; 85025; 86850; 86900; 86901; 87081; 87181; 93005; 97110; 97116; 97161; 97165; 97530; 97535; A9270; C1713; C1776; J0171; J0330; J0690; J1100; J1170; J1200; J1885; J2250; J2270; J2405; J2704; J2795; J3010; J3370; J7120

== ENCOUNTER 2024-07-18 10:11 | Emergency (ER) | payer MEDICARE, SELFPAY ==
--- NOTE | ~2024-07-18 | CT_ITS ---
EXAMINATION: CT knee RT w con DATE: 07/18/2024 14:15 INDICATION: Right knee swelling and bruising TECHNIQUE: High resolution computed tomography (CT) of the right knee was performed without intraveno us contrast. Additional sagittal and coronal reconstructions were performed. Echo dose Ruy The d ose-length product was 903.33 mGy-cm. COMPARISON: Right knee radiographs dated 07/12/2024 FINDINGS: Again seen is a recently placed right total knee arthroplasty without patellar resurfacing which appe ars well seated in near-anatomic alignment. There is expected small amount of residual soft tissue ga s at the thigh. Moderate-sized right knee joint effusion. No fracture. No cortical erosions. Subcutan eous edema about the mid to distal thigh, knee and to lesser degree at the proximal calf. IMPRESSION: 1. Expected appearance of a right total knee arthroplasty with no acute osseous adenopathy. 2. Moderate right knee joint effusion, subcutaneous edema and small amount of soft tissue gas at the distal thigh. All findings would be consistent with recent postoperative changes. If there is clinica l concern for infection would consider diagnostic arthrocentesis. Reviewed, dictated and finalized at location A. IMPRESSION: 1. Expected appearance of a right total knee arthroplasty with no acute osseous adenopathy. 2. Moderate right knee joint effusion, subcutaneous edema and small amount of s oft tissue gas at the distal thigh. All findings would be consistent with recen t postoperative changes. If there is clinical concern for infection would consi edvin diagnostic arthrocentesis.
--- NOTE | ~2024-07-18 | US_ITS ---
Duplex Sonography of the right extremity: Indication: Swelling Findings: Sagittal and transverse B-mode images as well as color-flow imaging were performed on the r ight femoral and popliteal veins. B-mode examination was done without and with compression in the tr ansverse plane. There is good visualization of the common femoral, proximal profunda femoral, superf icial femoral, greater saphenous, and popliteal veins. Normal flow was seen on color-flow imaging. N ormal compressibility was demonstrated. Visualized calf veins are also patent. Impression: No evidence of deep vein thrombosis involving the right lower extremity. Reviewed, dictated and finalized at location M. Impression: No evidence of deep vein thrombosis involving the right lower extremity.
[2024-07-18 10:14] VITALS: BP 154/85; PULSE 79; RESP 18; TEMP 36.6; O2SAT 100
[2024-07-18 12:40] LABS: Basophils Percent Auto 0.7 % (0.2-1.2); Eosinophils Absolute Auto 0.1 K/mm3 (0-0.3); Eosinophils Percent Auto 1.8 % (0-4.4); Hematocrit 32.5 % (42.0-52.0); Hemoglobin 10.8 g/dL (14.0-18.0); Immature Granulocyte Absolute 0.01 K/mm3 (0.00-0.031); Immature Granulocyte Percent A 0.2 % (0-0.5); Lymphocytes Absolute Auto 0.99 K/mm3 (0.9-3.2); Lymphocytes Percent Auto 22.6 % (18.3-44.2); Mean Corpuscular HGB Conc 33.2 g/dl (32-36); Mean Corpuscular Hemoglobin 32.5 pg (26-34); Mean Corpuscular Volume 97.9 fl (80-100); Mean Platelet Volume 9.1 fl (7.4-10.4); Monocytes Absolute Auto 0.5 K/mm3 (0.1-0.6); Monocytes Percent Auto 11.8 % (2.6-8.5); Neutrophils Absolute Auto 2.8 K/mm3 (1.3-6.7); Neutrophils Percent Auto 62.9 % (45.5-73.1); Platelet Count Result 213 k/mm3 (150-375); Red Blood Count 3.32 M/mm3 (4.6-6.20); Red Cell Distribution Width 12.3 % (11.5-14.5); White Blood Count 4.4 K/mm3 (4.5-10.0)
[2024-07-18 12:53] LABS: Alanine Aminotransferase 14 U/L (6-50); Albumin Level 3.8 g/dL (3.5-5.1); Alkaline Phosphatase 81 U/L (38-126); Anion Gap 8 mmol/L (4-12); Aspartate Amino Transferase 28 U/L (17-59); Blood Urea Nitrogen 19 mg/dL (9-20); CRP 4.5 mg/dL (<1.0); Calcium 9.2 mg/dL (8.4-10.2); Carbon Dioxide 29 mmol/L (22-30); Chloride 99 mmol/L (98-107); Estimated CRCL calculation 84 ml/min; Estimated Glomerular Filt Rate > 60; Glucose 135 mg/dL (65-110); Potassium 4.4 mmol/L (3.4-5.0); Sodium 136 mmol/L (137-145)
--- NOTE | 2024-07-18 13:12 | ED.EXTPRO ---
HPI - Extremity Problem General Chief complaint: Extremity Problem,Nontraumatic Stated complaint: sharp pain to left leg Time Seen by Provider: 07/18/24 11:41 History of Present Illness HPI Narrative: Patient is a 69-year-old male who presents to the emergency department this morning complaining of right lower extremity swelling and bruising. Patient had a total knee replacement on FridayJuly [address] Shipley and states that after the surgery his symptoms have been improving and swelling has been decreasing but within the last 24 hours he has noticed that his entire right lower extremity extending up to his thigh is swollen, more painful and has noticed bruising to the back of his leg which was not initially there. Denies any fevers or chills at home, patient states that in the past he has had a DVT and was concerned that he was developing another one as his symptoms were similar to what he is having right now. No additional symptoms or concerns at this time. Related Data Home Medications Medication Instructions Recorded Confirmed cholecalciferol (vitamin D3) 25 25 mcg PO DAILY 01/31/22 07/12/24 mcg (1,000 unit) capsule ferrous sulfate 325 mg (65 mg 325 mg PO DAILY 01/31/22 07/12/24 iron) tablet (Feosol) latanoprost 0.005 % eye drops 1 drp EACH EYE HS 01/31/22 07/12/24 lutein 20 mg capsule 20 mg PO DAILY 01/31/22 07/12/24 metformin 1,000 mg tablet 1,000 mg PO BID 01/31/22 07/12/24 multivitamin 1 tablet PO DAILY 01/31/22 07/12/24 omeprazole 20 mg capsule,delayed 20 mg PO BID 01/31/22 07/12/24 release rosuvastatin 20 mg tablet 20 mg PO DAILY 01/31/22 07/12/24 amlodipine 5 mg tablet 5 mg PO DAILY 02/16/24 07/12/24 icosapent ethyl 1 gram capsule 2 g PO BID 02/16/24 06/21/24 (Vascepa) flaxseed oil 1,000 mg capsule 1,000 mg PO DAILY 06/21/24 07/12/24 dorzolamide 2 % EACH EYE BID 07/12/24 07/12/24 Allergies Allergy/AdvReac Type Severity Reaction Status Date / Time lisinopril Allergy Unknown Hives Verified 07/18/24 11:24 Review of Systems Review of Systems: All systems are reviewed and are negative unless stated otherwise in the HPI. [facility] Past Medical History Medical History Cancer Diabetes GERD (gastroesophageal reflux disease) Hearing loss, bilateral Prostate calculus Subjective tinnitus of both ears Surgical History Surgical History History of appendectomy History of arthroscopic knee surgery right x 2 History of prostate surgery Family History Family History Father Cancer Heart disease Mother Cancer Hypertension Heart disease Sibling Cancer Social History Social History Smoking packs per day: 1 Smoking cigarettes per day: 20.0 Years smoked: 5 Smoking pack-years: 5.00 Smoking status: Former smoker Additional smoking assessment comments: DENIES ANY FORM OF TOBACCO USE Alcohol intake: current Drinks per week: 14 Alcohol use details: BEER Substance use: never Substance use type: does not use Do You Feel Safe in your Home?: Yes Lack of Transportation: No Lack of Food: Never True Current Housing: Decline to Answer Concerned About Future Housing: Decline to Answer Difficulty Paying Gas/Electric Bills: Decline to Answer Difficulty Paying for Meds: Decline to Answer Currently Unemployed: Decline to Answer Education: Decline to Answer Difficulty w/ Childcare or Family Care: Decline to Answer Living arrangements: with family Occupation/Education: retired Spiritual care concerns: No Exam Narrative: General: Alert, awake, afebrile, in no acute distress. HEENT: PERRL, no rhinorrhea, no post nasal drip, oropharynx clear. Cardiovascular: Regular rate and rhythm, no murmurs, rubs or gallops, no peripheral bruna
[2024-07-18 13:32] LABS: Erythrocyte Sedimentation Rate > 140 mm/hr (0-20)
[2024-07-18 13:45] VITALS: BP 146/84; PULSE 73; RESP 16; O2SAT 99
[2024-07-18] MEDS: MORPHINE SULFATE (*CRX) 4 MG/ML INJ IV PUSH (13:45)
[2024-07-18] MEDS: ONDANSETRON INJ 4 MG/2 ML VIAL IV PUSH (13:45)
== END 2024-07-18 15:30 | disposition home or self-care (01) ==
PROVIDERS: Emergency Provider Emergency Medicine; PCP Registered Nurse
DX: R60.0 Localized edema (principal); E11.9 Type 2 diabetes mellitus without complications; K21.9 Gastro-esophageal reflux disease without esophagitis; Z87.891 Personal history of nicotine dependence
CPT/HCPCS: 36415; 73701; 80053; 85025; 85652; 86140; 93971; 96374; 96375; 99284; J2270; J2405; Q9967

== ENCOUNTER 2024-08-09 09:31 | Outpatient (CLI) | payer MEDICARE, SELFPAY ==
--- NOTE | ~2024-08-09 | US_ITS ---
EXAMINATION: US venous doppler LE RT DATE: 08/09/2024 10:13 INDICATION: Right lower limb localized edema. TECHNIQUE: Grayscale ultrasound images without and with compression and Doppler ultrasound images of the right lower extremity veins were obtained. COMPARISON: Ultrasound 07/18/2024 FINDINGS: The visualized portions of right common femoral vein, profunda (deep) femoral vein, femoral vein, pop liteal vein, peroneal veins, posterior tibial veins, and greater saphenous vein outflow are patent. IMPRESSION: 1. No deep venous thrombosis. Reviewed, dictated and finalized at location A.
== END 2024-08-09 09:32 | disposition home or self-care (01) ==
PROVIDERS: PCP Registered Nurse; Visit Provider Physician Assistant Surgical
DX: R60.0 Localized edema (principal)
CPT/HCPCS: 93971

== ENCOUNTER 2024-09-23 09:00 | Outpatient (RCR) | payer MEDICARE, SELFPAY ==
--- NOTE | 2024-07-15 16:16 | PTOPEVAL1 ---
Assessment and note entered by [facility] Evaluation Information Assessment Status Evaluation Diagnosis R TKA ICD-10 Condition Codes (PT) Z47.1 Onset 07/12/24 Subjective Information Pt. reports that he underwent right knee replacement on 07/12/24. He reports that he has had difficulty with sleeping since surgery and has been sleeping terrible. He reports that he has hx of low back injury, making laying flat difficult. He reports that he is using oxycodone every 4 hours. He states that he attempting to exercise 1x every hour. He states that he was independent with all IADL's prior to surgery and states that he walked without an AD. He reports that his goal is to return to walking normal. Reported Pain Level Pain Score 4: Self Report Assessment PT Clinical Summary Pt. is a 69 year old male who enters the clinic 3 days post right TKA. he presents with notable edema, impaired gait, impaired ROM, weakness and functional decline. Continued skilled PT is indicating in order to improve these areas to allow for improved comfort with all IADL performance. Plan of Care Interventions Electrical Stimulation,Gait Training,Intermittent Compression,Manual Therapy,Neuro Re-education, Patient/Caregiver Educati,Therapeutic Activities, Therapeutic Exercise PT Services Indicated Yes Treatment Frequency and 2x/week x 12 visits Duration These treatments will address the objective and functional deficits as defined above. The patient will be advanced safely and appropriately in order for the patient to progress towards his/her prior level of function. Additional exercises will be introduced and as well as a comprehensive home exercise program upon discharge, if needed, ?to ensure carryover of functional gains achieved in the clinic. This treatment plan has been reviewed and agreement upon by the patient.
--- NOTE | 2024-07-15 16:16 | OPREHPOC ---
Outpatient Therapy Plan of Care This is a Multidisciplinary Plan of Care that may contain components documented by all disciplines (PT, OT, and ST.) PT Problem 1 PT Problem #1 Knowledge Deficit PT Goal 1 Goal / Goal Update Pt. will be independent with performance of Dr. Shipley's rehab protocol following TKA. Target Visit 2 PT Problem 2 PT Problem #2 Impaired Range of Motion PT Goal 1 Goal / Goal Update Pt. will achieve 0-125 degrees right knee active ROM. Target Visit 12 PT Problem 3 PT Problem #3 Impaired Gait PT Goal 1 Goal / Goal Update Pt. will be able to complete the 6 minute walk test without an AD demonstrating equal right and left stance time over a distance of 900' to return to community navigation Target Visit 12 PT Problem 4 PT Problem #4 Impaired Functional Mobil PT Goal 1 Goal / Goal Update Pt. will navigate steps with a reciprocal pattern Pt. will return to driving Target Visit 12 PT Problem 5 PT Problem #5 Impaired Strength PT Goal 1 Goal / Goal Update Pt. will demonstrate ability to complete sit to stand without hands for 10 reps indicating normal functional strength. Target Visit 12
--- NOTE | 2024-08-27 10:57 | OPREHPOC ---
Outpatient Therapy Plan of Care This is a Multidisciplinary Plan of Care that may contain components documented by all disciplines (PT, OT, and ST.) PT Problem 1 PT Problem #1 Knowledge Deficit PT Goal 1 Goal / Goal Update Pt. will be independent with performance of Dr. Shipley's rehab protocol following TKA. Target Visit 2 Progress Met PT Goal 2 Goal / Goal Update 08-27-24 progress goal met continue to progress education and HEP Target Visit 16 PT Problem 2 PT Problem #2 Impaired Range of Motion PT Goal 1 Goal / Goal Update Pt. will achieve 0-125 degrees right knee active ROM. Target Visit 12 Progress Partially Met PT Goal 2 Goal / Goal Update 08-27-24 progress goal met for flexion continue towards 0' extension Target Visit 16 PT Problem 3 PT Problem #3 Impaired Gait PT Goal 1 Goal / Goal Update Pt. will be able to complete the 6 minute walk test without an AD demonstrating equal right and left stance time over a distance of 900' to return to community navigation Target Visit 12 Progress Partially Met PT Goal 2 Goal / Goal Update 08-27-24 progress goal partially met: achieved without assistive device, but has limp and 760'; Target Visit 16 PT Problem 4 PT Problem #4 Impaired Functional Mobil PT Goal 1 Goal / Goal Update Pt. will navigate steps with a reciprocal pattern Pt. will return to driving Target Visit 12 Progress Partially Met PT Goal 2 Goal / Goal Update 08-27-24 progress goal met for stairs, but using hand railing for descending NEW GOAL: * down 4 steps without hand railing Target Visit 16 PT Problem 5 PT Problem #5 Impaired Strength PT Goal 1 Goal / Goal Update Pt. will demonstrate ability to complete sit to stand without hands for 10 reps indicating normal functional strength. Target Visit 12 Progress Met PT Goal 2 Goal / Goal Update 08-27-24 progress goal met; NEW GOAL: 1* single leg standing R x 10 seconds Target Visit 16
--- NOTE | 2024-08-27 10:57 | PTOPPROG ---
Assessment and note entered by Lacey Chapin, PT Progress Report Assessment Status Progress Diagnosis R TKA ICD-10 Condition Codes (PT) Z47.1 Onset 07/12/24 Subjective Information using the cane some, trying to get off of it; doing all the exercises at home; have been to the store a few times; want to continue therapy to get stronger and be able to do more; returns to dr in 2 weeks; PAIN: range in the past week -05/26; activity- walking/standing tolerance 20 minutes taking oxycodone 2x/day; have not been driving due to taking the meds; Assessment PT Clinical Summary Driss has received 12 PT sessions. Compared to the initial evaluation: pain now -; self assessment from 88 to 36% limitation in activity level; is walking without device, and using cane PRN; has slight limp on R LE; increase strength and ROM of R LE; 6 minute walking test distance of 760'; decreased single leg standing tolerance and descending stairs. Education for HEP and gait pattern. active ROM of R knee in sitting: (-8') to 125'; supine knee extension stretch to (-3'). The goals were partially achieved. Continue PT 1x/week to further increase knee strength and extension ROM. Plan of Care Interventions Gait Training,Manual Therapy,Neuro Re-education, Patient/Caregiver Education,Therapeutic Activities, Therapeutic Exercise PT Services Indicated Yes Treatment Frequency and 1x/wk for 4 weeks Duration These treatments will address the objective and functional deficits as defined above. The patient will be advanced safely and appropriately in order for the patient to progress towards his/her prior level of function. Additional exercises will be introduced and as well as a comprehensive home exercise program upon discharge, if needed, ?to ensure carryover of functional gains achieved in the clinic. This treatment plan has been reviewed and agreement upon by the patient.
--- NOTE | 2024-09-23 09:44 | OPREHPOC ---
Outpatient Therapy Plan of Care This is a Multidisciplinary Plan of Care that may contain components documented by all disciplines (PT, OT, and ST.) PT Problem 1 PT Problem #1 Knowledge Deficit PT Goal 1 Goal / Goal Update Pt. will be independent with performance of Dr. Shipley's rehab protocol following TKA. Target Visit 2 Progress Met PT Goal 2 Goal / Goal Update 08-27-24 progress goal met continue to progress education and HEP Target Visit 16 Progress Met PT Problem 2 PT Problem #2 Impaired Range of Motion PT Goal 1 Goal / Goal Update Pt. will achieve 0-125 degrees right knee active ROM. Target Visit 12 Progress Met PT Goal 2 Goal / Goal Update 08-27-24 progress goal met for flexion continue towards 0' extension Target Visit 16 Progress Met PT Problem 3 PT Problem #3 Impaired Gait PT Goal 1 Goal / Goal Update Pt. will be able to complete the 6 minute walk test without an AD demonstrating equal right and left stance time over a distance of 900' to return to community navigation Target Visit 12 Progress Met PT Goal 2 Goal / Goal Update 08-27-24 progress goal partially met: achieved without assistive device, but has limp and 760'; Target Visit 16 Progress Met PT Problem 4 PT Problem #4 Impaired Functional Mobil PT Goal 1 Goal / Goal Update Pt. will navigate steps with a reciprocal pattern Pt. will return to driving Target Visit 12 Progress Met PT Goal 2 Goal / Goal Update 08-27-24 progress goal met for stairs, but using hand railing for descending NEW GOAL: * down 4 steps without hand railing Target Visit 16 Progress Met PT Problem 5 PT Problem #5 Impaired Strength PT Goal 1 Goal / Goal Update Pt. will demonstrate ability to complete sit to stand without hands for 10 reps indicating normal functional strength. Target Visit 12 Progress Met PT Goal 2 Goal / Goal Update 08-27-24 progress goal met; NEW GOAL: 1* single leg standing R x 10 seconds Target Visit 16 Progress Met
--- NOTE | 2024-09-23 09:45 | PTOPDC ---
Assessment and note entered by Paul Thompson, PT Evaluation Information Assessment Status Discharge Diagnosis R TKA ICD-10 Condition Codes (PT) Z47.1 Onset 07/12/24 Subjective Information Reports that overall he is feeling really good. He has returned to the gym and is going at least 4 days a week. He is having a little trouble when initiating walking after the knee has been bent for a while. Feels comfortable with HEP and goals and feels suitable for discharge at this time. Reported Pain Level Pain Score 3: Self Report Assessment PT Clinical Summary Patient met all goals for therapy at this time and is suitable for D/C to HEP. HE has achieved 0-130 degrees functional knee motion and is consistently exercising with strength and function in mind 4x/week. Plan of Care PT Services Indicated D/C to HEP
== END 2024-09-23 11:33 | disposition home or self-care (01) ==
LOC: ANHPT 09:00
PROVIDERS: PCP Registered Nurse; Visit Provider Orthopaedic Surgery
DX: M17.11 Unilateral primary osteoarthritis, right knee (principal); Z96.651 Presence of right artificial knee joint
CPT/HCPCS: 97016; 97110; 97116; 97140; 97161; 97530

== ENCOUNTER 2025-06-02 10:15 | Outpatient (RCR) | payer MEDICARE, SELFPAY ==
--- NOTE | 2025-04-04 10:58 | OPREHPOC ---
Outpatient Therapy Plan of Care This is a Multidisciplinary Plan of Care that may contain components documented by all disciplines (PT, OT, and ST.) PT Problem 1 PT Problem #1 Knowledge Deficit PT Goal 1 Goal / Goal Update Day with HEP Target Visit 4 PT Problem 2 PT Problem #2 Impaired Range of Motion PT Goal 1 Goal / Goal Update 1. Patient will demonstrate consistent terminal knee extension without pain 2. Improve wilmer hip extension to 15+ degrees to improve terminal stance of gait Target Visit 8 PT Problem 3 PT Problem #3 Pain PT Goal 1 Goal / Goal Update 1. Demonstrate no palpable tenderness to lateral joint line and IT band Target Visit 8 PT Problem 4 PT Problem #4 Impaired Strength PT Goal 1 Goal / Goal Update 1. Improve wilmer hip abduction strength to 4+/5 to improve lateral stability with gait and ADLs
--- NOTE | 2025-04-04 10:58 | PTOPEVAL1 ---
Assessment and note entered by Paul Thompson, PT Evaluation Information Assessment Status Evaluation Diagnosis History of right Total Knee Arthroplasty ICD-10 Condition Codes (PT) Pain in right hip M25.551,Pain in right knee M25. 561 Onset 07/12/24 Subjective Information Reports that the pain is worse when he is not moving the knee. He is currently on high does prednisone. Feels that he cannot fully extend his knee at this time. He has taken away all of his knee exercises that he was doing after surgery including time at the [facility] and exercise bikes. He is having trouble sleeping at night. Pain is all above the knee and below the patella. 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 Assessment PT Clinical Summary Patient presents with knee tenderness and altered gait following Total knee Arthroplasty approximately 9 months ago. Patient demonstrates good motion but continues to suffer with pain. On assessment of hips, it is noted to be lacking hip extension and rotational components putting increased pull on 2 joitn musculature. Will benefit from skilled therapy to address mobility deficits to improve mobility of hip and restore proper gait pattern. Plan of Care PT Services Indicated Yes Treatment Frequency and 2x/week for 8 visits Duration These treatments will address the objective and functional deficits as defined above. The patient will be advanced safely and appropriately in order for the patient to progress towards his/her prior level of function. Additional exercises will be introduced and as well as a comprehensive home exercise program upon discharge, if needed, ?to ensure carryover of functional gains achieved in the clinic. This treatment plan has been reviewed and agreement upon by the patient.
--- NOTE | 2025-05-02 17:30 | OPREHPOC ---
Outpatient Therapy Plan of Care This is a Multidisciplinary Plan of Care that may contain components documented by all disciplines (PT, OT, and ST.) PT Problem 1 PT Problem #1 Knowledge Deficit PT Goal 1 Goal / Goal Update [place] with HEP Target Visit 4 Progress Met PT Problem 2 PT Problem #2 Impaired Range of Motion PT Goal 1 Goal / Goal Update 1. Patient will demonstrate consistent terminal knee extension without pain 2. Improve wilmer hip extension to 15+ degrees to improve terminal stance of gait 05/02/25: Lacking full terminal knee extension Target Visit 8 Progress Partially Met PT Problem 3 PT Problem #3 Pain PT Goal 1 Goal / Goal Update 1. Demonstrate no palpable tenderness to lateral joint line and IT band 05/02/25: Continues to show tenderness to knee complex and incision Target Visit 8 Progress Partially Met PT Problem 4 PT Problem #4 Impaired Strength PT Goal 1 Goal / Goal Update 1. Improve wilmer hip abduction strength to 4+/5 to improve lateral stability with gait and ADLs Target Visit 8 Progress Partially Met
--- NOTE | 2025-05-02 17:30 | PTOPPROG ---
Assessment and note entered by Paul Thompson, PT Evaluation Information Assessment Status Progress Diagnosis History of right Total Knee Arthroplasty ICD-10 Condition Codes (PT) Pain in right hip M25.551,Pain in right knee M25. 561 Onset 07/12/24 Subjective Information Overall feels that he is getting straighter and straighter with knee motion. Seeing some minor improvement in pain but it has been slow. Assessment PT Clinical Summary Patient has seen some improvement in knee extension. We are able to achieve it passively with minimal pain but he still has difficulty with pain during activity and with actively extending knee. Will benefit form continuation of therapy to address these deficits for fdc mobility improvement and muscle activation with decreased tenderness. Plan of Care PT Services Indicated Yes Treatment Frequency and 2x/week for 8 visits Duration These treatments will address the objective and functional deficits as defined above. The patient will be advanced safely and appropriately in order for the patient to progress towards his/her prior level of function. Additional exercises will be introduced and as well as a comprehensive home exercise program upon discharge, if needed, ?to ensure carryover of functional gains achieved in the clinic. This treatment plan has been reviewed and agreement upon by the patient.
--- NOTE | 2025-05-24 09:57 | PCPTNOTE ---
Cancelled, reason unknown. AKS
--- NOTE | 2025-06-02 11:48 | OPREHPOC ---
Outpatient Therapy Plan of Care This is a Multidisciplinary Plan of Care that may contain components documented by all disciplines (PT, OT, and ST.) PT Problem 1 PT Problem #1 Knowledge Deficit PT Goal 1 Goal / Goal Update [place] with HEP Target Visit 4 Progress Met PT Problem 2 PT Problem #2 Impaired Range of Motion PT Goal 1 Goal / Goal Update 1. Patient will demonstrate consistent terminal knee extension without pain 2. Improve wilmer hip extension to 15+ degrees to improve terminal stance of gait 05/02/25: Lacking full terminal knee extension Target Visit 8 Progress Not Met PT Problem 3 PT Problem #3 Pain PT Goal 1 Goal / Goal Update 1. Demonstrate no palpable tenderness to lateral joint line and IT band Target Visit 8 Progress Not Met PT Problem 4 PT Problem #4 Impaired Strength PT Goal 1 Goal / Goal Update 1. Improve wilmer hip abduction strength to 4+/5 to improve lateral stability with gait and ADLs Target Visit 8 Progress Met
--- NOTE | 2025-06-02 11:48 | PTOPDC ---
Assessment and note entered by Paul Thompson, PT Evaluation Information Assessment Status Discharge Diagnosis History of right Total Knee Arthroplasty ICD-10 Condition Codes (PT) Pain in right hip M25.551,Pain in right knee M25. 561 Onset 07/12/24 Subjective Information Reports that at times he feels he is worse than he was prior to a knee replacement. Feels he does not have long waling endurance and he has recently started feeling moderate burning pain in the knee . States that he is unsure where to go from here. Has a follow up with MD in June to discuss at his 1 year out appointment. Plans to continue with [facility] to maintain and improve functional motion and gait. Reported Pain Level Pain Score 4: Self Report Assessment PT Clinical Summary Patient has shown a plateau in knee functional mobility. We have emphasized functional ROM with soft tissue work to reduce pain and improve gait mechanics. Patient has had ups and downs in pain during this therapeutic episode. We discussed conservative options moving forward and I encouraged discussion with MD about possibly considering pain management and will leave that between him and the physician. Patient has understanding of what to work on mcfp. Will be discharged to [facility] At this time. Plan of Care PT Services Indicated Yes
== END 2025-06-02 16:18 | disposition home or self-care (01) ==
LOC: ANHPT 10:15
PROVIDERS: PCP Registered Nurse; Visit Provider Orthopaedic Surgery
DX: Z47.1 Aftercare following joint replacement surgery (principal); M25.561 Pain in right knee; M25.551 Pain in right hip; M16.11 Unilateral primary osteoarthritis, right hip; Z96.651 Presence of right artificial knee joint
CPT/HCPCS: 97035; 97110; 97140; 97161; 97530

== ENCOUNTER 2025-08-04 06:57 | Outpatient (CLI) | payer MEDICARE, SELFPAY ==
--- NOTE | ~2025-08-04 | MR_ITS ---
EXAMINATION: MR lumbar spine wo melvin, 08/04/2025 7:15 CDT HISTORY: M54.50 - Low back pain, unspecified COMPARISON: None TECHNIQUE: Multi-planar multi-sequence images were obtained of the lumbar spine without contrast per protocol. FINDINGS: The vertebral heights are intact. There is no fracture or subluxation. Marrow signal is appropriate. Posterior alignment is intact. There is no abnormal signal within the posterior elements Conus terminates at T12-L1, there is no abnormal signal in the visualized cord Moderate loss of disc height throughout with mild disc desiccation and endplate degenerative changes The soft tissues are unremarkable L5-S1: Circumferential bulging of the disc with ligamentum flavum and facet hypertrophy. Mild bilateral foramina and lateral recess stenosis. No canal stenosis. L4-5: Circumferential bulging of the disc with ligamentum flavum and facet hypertrophy. Moderate bilateral foramina and lateral recess stenosis, mild canal stenosis. L3-4: Circumferential bulging of the disc with ligamentum flavum and facet hypertrophy. Moderate bilateral foramina and lateral recess stenosis, no canal stenosis. L2-L3: No canal or foraminal stenosis L1-L2: No canal or foraminal stenosis IMPRESSION: Degenerative changes detailed above Reviewed, dictated and finalized at location A.
== END 2025-08-04 06:58 | disposition home or self-care (01) ==
LOC: MICIMG 06:58
PROVIDERS: PCP Registered Nurse; Visit Provider Orthopaedic Surgery
DX: M51.369 Other intervertebral disc degeneration, lumbar region without mention of lumbar back pain or lower extremity pain (principal)
CPT/HCPCS: 72148

== ENCOUNTER 2025-08-29 07:54 | Outpatient (CLI) | payer MEDICARE, SELFPAY ==
--- OUTSIDE RECORDS SUMMARY | 2019-07-27 09:28 | XMS_ITS | Continuity of Care Document ---
[facility] Organization [facility] Address [address] [place] [address] Phone Care Team Providers Care Maker Up Folding Name Role Phone Syriac Giancarlo ZAMORA Unavailable Unavailable Allergies, Adverse Reactions, Alerts Substance Reaction Status Criticality No Known Allergies Active No Inform ation Medications Medication Instructions Dosage Effective Dates (start - stop) Status Comments CRESTOR TAB 20MG TAKE 1 TABLET EVERY DAY - Active omeprazole 20 mg capsule,delayed release TAKE 1 CAPSULE TWICE DAILY - Active ipratropium bromide 0.06 % nasal spray spray 2 spray by intranasal route 3 times every day in each nostril 2.00 spray - Active Levaquin 500 mg tablet take 1 tablet by oral route every 24 hours - Active Guaifenesin AC 10 mg-100 mg/5 mL oral liquid take 10 milliliter by oral route every 6 hours as needed 10 milliliter - Active aspirin 81 mg tablet,delayed release take 1 tablet by oral route every day 81 MG - Active MULTIVITAMINS CAPSULE 1 QD-daily - Active FISH OIL 1,000 MG SOFTGEL 1 QD - Active timolol maleate 0.5 % eye drops instill one drop in each eye daily - Active latanoprost 0.005 % eye drops instill 1 drop by ophthalmic route every day into affected eye(s) in the evening 1.00 drop - Active Advance Directives Directive Yes / No Effective Date File Name No Information Encounters Encounter Description Practice Location Reason(s) For Visit Diagnoses Date Provider Providers Copied on Encounter [facility] [employer], [address], [place], [place], [id number] , tel: [phone] Troy No Information Sep- 0 9 English Mondragon. [place], [address], [place]. tel:[phone] [facility] [employer], [address], [place], [place], [address] , tel: [phone] Paulo No Information 7 English Mondragon. [place], [address], [place]. tel:[phone] [facility], [address], [place], [place], [address] , tel: [phone] Paulo No Information 7 English Mondragon. [place], [address], [place]. tel:[phone] [facility], [address], [place], [place], [address] , tel: [phone] Paulo MelenaAcute rhinosinusitisAbnor mal laboratory test 6 English Mondragon. [place], [address], [place]. tel:[phone] Referring Provider: [place], [address] . tel:[phone] [facility], [address], [place], [place], [address] , tel: [phone] Paulo Encounter for general adult medical examination without abnormal findingsPersonal history of malignant neoplasm of prostateOther hyperlipidemiaObstr uctive sleep apnea (adult) (pediatric)Prediabe tesEncounter for immunization 6 English Mondragon. [place], [address], [place]. tel:[phone] Referring Provider: [place], [address] . tel:[phone] [facility], [address], [place], [place], [address] , tel: [phone] Troy Encounter for laboratory examinationOther and unspecified hyperlipidemiaLong term use of drugPrediabetesPers onal history of prostate cancer 6 English Mondragon. [address] [place], [address], [place]. tel:[phone] [facility], [address], [place], [place], [address] , [place] tel: [phone] Troy FOLLOW UP (chief complaint) Acute deep vein thrombosis (DVT) of popliteal vein of right lower extremity 6 Rocio Gasca. [address] [place], [place], [address], [place]. tel:[phone] Referring Provider: Campos Landers, [address] [place], [address] . tel:[phone] [facility], [address], [place], [place], [address] , [place] tel: [phone] [place] Acute deep vein thrombosis (DVT) of popliteal vein of right lower extremity 6 Rocio Gasca. [address] [place], [place], [address], [place]. tel:[phone] Referring Provider: Campos Landers, [address] [place], [address] . tel:[phone] [facility], [address], [place], [place], [address] , [place] tel: [phone] [place] Obstructive sleep apnea (adult) (pediatric)Other hyperlipidemiaImpai red glucose tolerance (oral)Essential (primary) hypertensionPersona l history of malignant neoplasm of prostateEncounter for general adult medical examination without abnormal findingsEssential tremor 5 Rocio Gasca. [address] [place], [place], [address], [place]. tel:[phone] Referring Provider: Campos Landers, [address] [place], [address] . tel:[phone] [facility], [address], [place], [place], [address] , [place] tel: [phone] [place] Nasal lesion 4 Rocio Gasca. [address] [place], [place], [address], [place]. [phone] [facility] [employer], [address], [place], [place], [address] , [place] tel: [phone] [place] Benign essential hypertensionOther and unspecified hyperlipidemiaUnspe cified sleep apneaImpaired glucose tolerance test (oral)History of prostate cancerTrigger index finger of left handNasal lesionRoutine general medical examination at a [facility] facility 4 Rcoio Gasca. [address] [place], [place], [address], [place]. tel:[phone] Referring Provider: Campos Landers, [address] [place], [address] . tel:[phone] [facility], [address], [place], [place], [address] , [place] tel: [phone] Troy PrediabetesOther and unspecified hyperlipidemiaAnnua l physical examMalignant neoplasm prostate Aug- 4 Rocio Gasca. [address] [place], [place], [address], [place]. tel:[phone] [facility], [address], [place], [place], [address] , [place] tel: [phone] [place] History of prostate cancerOther and unspecified hyperlipidemiaHyper tension, BenignSleep Apnea, ObstructivePrediabe tesRoutine general medical examination at [facility] 3 Rocio Gasca. [address] [place], [place], [address], [place]. tel:[phone] Referring Provider: Campos Landers, [address] [place], [address] . tel:[phone] [facility], [address], [place], [place], [address] , tel: [phone] Troy Benign essential hypertensionOther and unspecified hyperlipidemiaMalig nant neoplasm of prostateOTHER ABNORMAL GLUCOSELong-term (current) use of other medications Aug- 3 Rocio Gasca. [address] [place], [place], [address], [place]. tel:[phone] [facility], [address], [place], [place], [address] , [place] tel: [phone] [place] HYPERLIPIDEMIA NEC/NOSMALIGN NEOPL PROSTATEAnnual physical examRoutine general medical examination at a health care facilityPrediabetes Special screening for malignant neoplasms, colonNeed for prophylactic vaccination and inoculation against streptococcus pneumoniae [pneumococcus] 2 Rocio Gasca. [address] [place], [place], [address], [place]. tel:[phone] Referring Provider: Campos Landers, [address] [place], [address] . tel:[phone] [facility], [address], [place], [place], [address] , [place] tel: [phone] Troy Atypical chest painPalpitationsOth er and unspecified hyperlipidemia 2 Rocio Gasca. [address] [place], [place], [address], [place]. [phone] Referring Provider: Campos Landers, [address] [place], [address] . tel:[phone] [facility], [address], [place], [place], [address] , [place] tel: [phone] Troy ESOPHAGEAL REFLUXHYPERLIPIDEMI A NEC/NOSOSA on CPAPElbow pain, right Feb- 2 Chastity Ivy. [address] [facility] 4th [address], [place], [place], [address]. tel:[phone] [facility], [address], [place], [place], [address] , [place] tel: [phone] Troy No Information Oct- 1 Rocio Gasca. [address] [place], [place], [address], [place]. tel:[phone] Referring Provider: Campos Landers, [address] [place], [address] . tel:[phone] [facility] [address], [place], [place], [address] , tel: [phone] Paulo No Information 1 Rocio Montoya [address] [place] [address], [id number], . tel:[phone] [facility], [address], [place], [place], [address] , tel: [phone] Paulo HYPERLIPIDEMIA NEC/NOSBENIGN HYPERTENSION 1 [facility]. [address] [place] [address], [address], [place]. [facility] [employer], [address], [place], [place], [address] , tel: [phone] Paulo ROUTINE MEDICAL EXAMMALIGN NEOPL PROSTATESCREEN MAL NEOP-RECTUMBLOOD IN STOOL 0 Rocio Montoya [address] [place] [address], [id number], . tel:[phone] [facility], [address], [place], [place], [address] , tel: [phone] Paulo ESOPHAGEAL REFLUX 0 [facility]. [address] [place] [address], [facility], . Family History Family Member Type Diagnosis Age At Onset Brother Problem (finding) Alive and well Father Problem (finding) prostate cancer Brother Problem (finding) Mother Problem (finding) malignant neoplasm of o vary Father Problem (finding) coronary arterioscleros is Sister Problem (finding) malignant neop lasm of breast in first degree relative Brother Problem (finding) 18mo old/trauma (C ause Of ) Immunizations Vaccine Date Status Comments Influenza, injectable, quadrivalent, preservative free, 3 yrs or older administered Source: New Immuniz ation Record Influenza, injectable, quadrivalent, preservative free, 3 yrs or older administered Source: New Immuniz ation Record Tdap administered Source: New Imm unization Record influenza, injectable, quadrivalent, (3 years or older) administered Source: New Immuniza tion Record Pneumo (2 yrs or older) (PPV23) administered Note: [facility]: [id number] [phone] ; Source: New Immunization Record flu (split) (3 yrs or older) administered Source: Other Provider Tetanus toxoid administered Source: Other Provider Payers Payer name Insurance type Covered republican ID Authoriza tion(s) [place] [id number] [place] [id number] [place] [id number] [place] [id number] Social History Type Description Quantity Date Captured Comments Alcohol Use Details Unknown Caffeine Use Details Unknown Tobacco Use Status No Information Smoking Status No Information Sex Male Chief Complaint And Reason For Visit No Information Reason For Referral Reason For Referral No Information History Of Present Illness Encounter Date Complaint History Of Prese nt Illness FOLLOW UP 3 WEEK F/U OF SM ALL CLOT RT CALF POST HAND SURGERY..NO PLEURISY, SOB, ETC...HE REMINDED ME POST PROSTATECTOMY IN 2005 HAD SMALL LEFT CALF CLOT..THINKS HIS MOM HAD A CLOT...HAND SURGERY WENT WELL Functional Status Date Functional Assessmen t No Information Instructions Date Instruction Additional Infor hany THIS IS SMALL AND SH ORT TERM TREATMENT W ELIQUIS FOR 7 WEEKS IS ALL THAT IS NECESSARY; SINCE HAD PRIOR SMALL CLOT AFTER SURGERY, SO AFTER THE ELIQUIS IS FINISHED WILL CHECK PROTEIN C, PROTEIN S, ANTITHROMBIN 3. LEIDEN FACTOR 5, AND ANTICARDIOPIPIN ANTIBODY; SLIP GIVEN Related to Acute deep vein thrombosis (DVT) of popliteal vein of right lower extremity Disease process Assessments Type Assessment Date No Information Patient Care Teams Name Effective Dates (start - stop) Status Members No Information
--- NOTE | ~2025-08-29 | MR_ITS ---
EXAMINATION: MR femur RT wo/w con DATE: 08/29/2025 08:53 INDICATION: Right knee pain TECHNIQUE: Magnetic resonance imaging (MRI) of the right femur/thigh was performed without and with 20 mL Multihance intravenous contrast. Sequences included axial, sagittal and coronal T1-weighted FSE and fluid sensitive FSE STIR, axial T1-weighted FS FSE and post contrast axial and coronal T1-weighted FS FSE were also obtained. The contralateral left femur/thigh is included on the coronal images. COMPARISON: Right knee radiographs dated 07/13/2025 and pelvis radiographs dated 03/05/2025 FINDINGS: There is metallic magnetic field artifact at the right knee associated with the peripherally arthroplasty. No fracture. There is a central intramedullary tract of increased T2 and decreased T1 signal extending 20 cm proximally in the distal right femur which could be related to bone infarct or scarring related to prior guide francis placement associated with the arthroplasty. There is otherwise normal bone marrow signal throughout. Small right knee joint effusion. Physiologic amount fluid in the contralateral left knee. Mild to moderate osteoarthritis at the bilateral hips without associated joint effusions. There is normal symmetric muscle bulk and signal in the bilateral thighs. Neurovascular bundles in the right thigh are unremarkable. Soft tissues are otherwise unremarkable masses or fluid collections. No pathologically enlarged inguinal lymphadenopathy. IMPRESSION: 1. Right total knee arthroplasty with nonspecific small knee joint effusion. 2. Central intramedullary tract of replacement of the normal marrow signal extending 20 cm proximal to distal the distal right femur most likely represents scarring related to a prior guide tract associated with the knee arthroplasty although differential would include bone infarct. Reviewed, dictated and finalized at location A. IMPRESSION: 1. Right total knee arthroplasty with nonspecific small knee joint effusion. 2. Central intramedullary tract of replacement of the normal marrow signal exte nding 20 cm proximal to distal the distal right femur most likely represents sc arring related to a prior guide tract associated with the knee arthroplasty alt rosalind differential would include bone infarct.
--- OUTSIDE RECORDS SUMMARY | 2025-08-29 08:05 | XMS_ITS | Clinical Summary ---
Author Organization [facility] [address] Address [address] [place] [address] Care Team Providers Care Projects Manager Name Role Phone Lucila Tang Primary Care Provider + Allergies Active Allergy Reactions Criticality Noted Date Comments Lidocaine Unknown,Hives Medium 11/11/2012 Hives Lisinopril Hives,Itching Medium 11/28/2022 Medications rosuvastatin (CRESTOR) 20 mg tablet TAKE 1 TABLET ONCE DAILY (PATIENT NEEDS TO CALL THE OFFICE TO SCHEDULE APPOINTMENT) 30 tablet 9 Active aspirin 81 mg enteric coated tablet 1 tablet (81 mg total) daily Active latanoprost (XALATAN) 0.005 % ophthalmic solution 1 Active metFORMIN (GLUCOPHAGE) 1,000 mg tablet Take 1 tablet (1,000 mg total) by mouth 2 (two) times a day 1 Active multivitamin-min -iron-FA-vit K (Adults Multivitamin) 18 mg iron-400 mcg-25 mcg tablet daily Active omeprazole (PriLOSEC) 20 mg capsule 2 (two) times a day 1 Active ferrous sulfate ER 324 mg (65 mg iron) EC tabletIndication s:Iron Deficiency Anemia Take 65 mg by mouth Active cholecalciferol (VITAMIN D-3) 1,000 unit capsule Take 1 capsule (1,000 Units total) by mouth daily Active ascorbic acid (VITAMIN C) 500 mg tablet,chewable Acti ve lutein-zeaxanthi n 25-5 mg capsule Take by mouth daily Active flaxseed oiL 1,000 mg capsule 1 capsule (1,000 mg total) daily Active icosapent ethyL (VASCEPA) 1 gram capsule 3 Active meloxicam (MOBIC) 15 mg tablet Take 1 tablet (15 mg total) by mouth daily 5 Active timolol (TIMOPTIC) 0.5 % ophthalmic solution 5 Active amLODIPine (NORVASC) 5 mg tabletIndication s:Essential hypertension Take 1 tablet (5 mg total) by mouth daily 90 tablet 1 5 08/12/20 26 Active amLODIPine (NORVASC) 5 mg tabletIndication s:Essential hypertension TAKE 1 TABLET (5 MG TOTAL) BY MOUTH DAILY. 90 tablet 2 5 08/12/20 Discontinu ed(Reorder ) Active Problems Problem Noted Date Diagnosed Date Nonrheumatic aortic valve insufficiency 02/11/20 BRIONES (dyspnea on exertion) 11/25/2022 Tachycardia, unspecified 11/25/2022 Tinnitus 10/31/2022 Impacted cerumen of left ear 10/31/2022 Dyslipidemia 12/21/2021 Palpitations 12/17/2021 Dizziness 12/17/2021 Essential hypertension 12/17/2021 Encounters Date Type Department Care Team Description 07/11/2025 10:15 AM CDT Office Visit [facility] [address] [place] [address] Luz Andres MD Essential hypertension (Primary Dx); Dyslipidemia; BRIONES (dyspnea on exertion); Palpitations; Nonrheumatic aortic valve insufficiency from Last 3 Months Surgical History Surgery Date Site/Laterality Comments MA APPENDECTOMY Appendectomy - (Added by TW Conv) KNEE SURGERY Knee Surgery - (Added by TW Conv) PROSTATECTOMY FINGER SURGERY SEPTORHINOPLASTY Medical History Medical History Date Comments Personal history of thrombophlebitis 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) Personal history of other di seases of the digestive system History of esophageal reflux - (Added by TW Conv) Hypertension Hyperlipidemia Diabetes mellitus Dizziness Left arm pain Cancer (HCC) Anemia Snoring Aortic valve insufficiency 01/10/2022 GERD (gastroesophageal reflux disease) Sleep apnea Family History Medical History Relation Name Comments Heart disease Father Campos Olson Memory loss Father Campos Wobbe Cancer Mother Gretta Olson Heart disease Mother Gretta Olson Prostate cancer Other Prostate Can cer - + father (Added by TW Conv) Relation Name Status Comments Brother Alive Father Campos Olson Alive Mother Gretta Olson Alive Other Sister Alive Social History Tobacco Use Types Packs/Day Years Used Date Smoking Tobacco: Former Cigarettes 0.3 11 0 01/16/1972 - 01/15/1983 Cigars Smokeless Tobacco: Never Tobacco Cessation:Counseling Given: Not Answered Comments:Quit Sex and Gender Information Value Date Recorded Sex Assigned at Not on file 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 Gender Identity Not on file Sexual Orientation Not on file Obstetrics History Last Filed Vital Signs Vital Sign Reading Time Taken Comments Blood Pressure 120/70 07/11/2025 10:04 AM CDT Pulse 71 07/11/2025 10:04 AM CDT Temperature - - Respiratory Rate - - Oxygen Saturation 97% 07/11/2025 10: 04 AM CDT Inhaled Oxygen Concentration - - Weight 108.1 kg (238 lb 4.8 oz) 025 10:04 AM CDT Height 177.8 cm (5' 10) 07/11/2025 10: 04 AM CDT Body Mass Index 34.19 07/11/2025 10:04 AM CDT Plan of Treatment Health Maintenance Due Date Last Done Comments Colon Cancer Screening-Colonoscopy 1955 Depression Screening 1955 Fall Risk Assessment 1955 Hepatitis C Screening 1955 Hepatitis B Screening 1974 Pneumococcal vaccine 65+ (1 of 1 - PCV) 2006 Zoster Vaccine (1 of 2) 2006 Prostate Cancer Screening-PSA 08/19/2020 08/19/2018, 09/19/2017 Abdominal Aortic Aneurysm (A AA) Screen 2021 Well Visit 65+ 2021 Influenza Vaccine (#1) 2025 8, 09/12/2016, 09/18/2015 DTaP/Tdap/Td Vaccine (3 - Td or Tdap) 09/18/202512/2014, 09/18/2015 Procedures Procedure Name Priority Date/Time Associated Diagnosis Comments POCT LIPID PANEL Routine 07/11/2025 10:1 3 AM CDT Dyslipidemia PSA DIAGNOSTIC Routine 08/19/2018 9:26 AM CDT from Last 3 Months or Most Recently Relevant to Health Maintenance Results * (ABNORMAL) POCT lipid panel (07/11/2025 10:13 AM CDT) Cholesterol, POC 154 <200 MG/DL Comment:GLU = 161 HDL, POC 46 >=40 mg/dL Triglycerides, POC 342(A) <=149 mg/dL LDL Cholesterol POC 39 <=129 mg/dL Chol/HDL Ratio, POC 0.9 NONE Non-HDL Cholesterol, POC 108 NONE mg/dL Cholesterol Total, POC 154 30 - 199 mg/dL Capillary blood 07/11/2025 1 0:13 AM CDT us Luz Andres MD POINT OF CARE TEST O RDERABLES Final Result * PSA diagnostic (08/19/2018 9:26 AM CDT) PSA <0.1 0.0 - 4.0 ng/mL [facility] HISTORICAL RESULTS Comment: Jaden ECLIA methodology. . According to the [place] [employer], Serum PSA should decrease and remain at undetectable levels after radical prostatectomy. The AUA defines biochemical recurrence as an initial PSA value 0.2 ng/mL or greater followed by a subsequent confirmatory PSA value 0.2 ng/mL or greater. Values obtained with different assay methods or kits cannot be used interchangeably. Results cannot be interpreted as absolute evidence of the presence or absence of malignant disease. 08/19/2018 9:26 AM CDT 08/20/2018 9:40 AM CDT Narrative [facility] HISTORICAL RESULTS - 08/20/2018 10:36 AM CDT PERFORMING LAB: [facility] [place], [address] [facility], [place], Phone - [phone], Director - PhDRicchitrinity us Kade Fleming MD LAB BLOOD ORDERABLES Final Resul t [facility] from Last 3 Months or Most Recently Relevant to Health Maintenance Insurance [facility] Address: [place] [id number] [facility] Address: [place] [address] [facility] Address: [facility] [address] [place] [address] Care Teams Projects Manager Relationship Specialty Start Date End Date Lucila Tang PA [address] [place] [phone] PCP - General Nurse Practitioner 11/05/21
--- OUTSIDE RECORDS SUMMARY | 2025-08-29 08:05 | XMS_ITS | Encounter Summary ---
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 us Historical Provider Final Res ult documented in this encounter Visit Diagnoses Not on filedocumented in this encounter Care Teams Automation Test Developer Relationship Specialty Start Date End Date Lucila Tang PA [address] [place] [id number] PCP - General Nurse Practitioner 11/05/21 documented as of this encounter
--- OUTSIDE RECORDS SUMMARY | 2025-08-29 08:05 | XMS_ITS | Data Portability ---
Author Organization [place] [facility] [employer], Main Office Address [address] [place] [address] Care Team Providers Care Software Tester Name Role Phone ALMA GAINES Primary Care Provider ALMA GAINES Referring Provider LEATHA FAIR Site Acquisition Specialist Unavailable Assessment Encounter Date Assessment Date Assessment LastModified by Organization Details LastModified Time 11/06/2023 11/06/2023 The patient has moderately severe primary osteoarthritis of the right knee joint as described. We talked about treatment options today in detail we are going to restart meloxicam 15 mg daily, he would like to try another shot of cortisone as well it has been over a year. Therefore under sterile conditions I injected the patient's right knee joint in the office with 4 cc 0.5% bupivacaine and 20 mg of Kenalog. Patient tolerated the procedure well. I will see him back as needed we can do this again in 3 months if necessary we did talk about the possibility of gel shots as well he was given a brochure on this but hopefully we will get to that point and this treatment will work well for him. He voiced understanding agrees above plan will call for any further problems difficulties or questions. [email or web address] Not available 11/06/2023 15:01:10 12/26/2023 12/26/2023 Impression: 1. Patient has osteoarthritis of his right hip that was [id number] a little over 2 years ago radiographically he does have reproduction of his lateral right hip pain with rotation of the right hip with Stinchfield maneuver. I do not think that his knee is causing his right hip to hurt but rather they osteoarthritis of his right hip is causing the lateral right hip pain. 2. Patient has moderately severe medial compartment osteoarthritis in the right knee. He did not feel that he had very good results from the cortisone shot 6 weeks ago. He does not have a palpable effusion exam today. He does have moderate medial joint line tenderness. He takes meloxicam 15 mg daily. Does not seem that this is controlling his lateral right hip and his right knee symptoms currently. I have recommended that he try much harder to lose weight which will help him from medical standpoint help his diabetes and reduce the pain he experiences in his hip knee. I had a long discussion with him about the fact that his exercise regimen is not likely to lead to weight loss. Exercise is good for his cardiovascular system but in order for him to lose weight he is going to need to modify diet. I recommended he take the approach of avoiding simple carbohydrates such as sweets bread pasta pizza dough rice potatoes. This approach will tend to help his diabetes. It may allow him to burn off fat stores and lose weight. I recommend that he way of self daily and strive to lose 1-1/2 lb each every week. I discussed with him the option of trying a stronger nonsteroidal anti-inflammatory medication. He does have history of gastroesophageal reflex disease and takes omeprazole daily and nonsteroidal anti-inflammatory medications could potentially exacerbate reflux esophagitis so he will have to watch for that. I have given him an instruction sheet describing possible side effects of anti-inflammatory medication use. he will stop meloxicam when he starts the diclofenac. I will see him back in 1 month to assess his progress. If he does not see significant relief with switching to diclofenac , and if his symptoms are pronounced, joint replacement surgery would be a consideration for him. If he is still having lateral hip soreness I would recommend obtaining x-rays of right hip and AP pelvis at next visit. He does have history of prostate cancer which can be a cause of hip pain and is hip osteoarthritis may have progressed significantly since August 2020. 30 minutes were spent in total care this patient more than half the time spent in [facility]. [email or web address] Not available 01/04/2024 12:46:58 Plan of Treatment Reminders Order Date Submit Date Provider Last Modified By Organization Details Last Modified Time Details Appointments None recorded. Lab None recorded. Referral None recorded. Procedures injection/a spiration joint/bursa (PROC) 2022 023 [email or web address] In-Office Order, Internal Use Only DO Not Attach Compendium DO Not Attach Compendium, Do Not Delete/merge, [id number] 3 14:49:23 Surgeries None recorded. Imaging XR, knee 2022 023 [email or web address] [facility], [address], [place], [address], 3 16:22:57 Medication Orders diclofenac sodium 75 mg tablet,macrina yed release 2023 024 [email or web address] [facility] [id number], [place], [address], 4 11:00:27 bupivacaine HCl 0.5 % (5 mg/mL) injection solution 2022 023 [email or web address] [facility] [address], [place], [address], 4 11:02:01 Kenalog 10 mg/mL suspension for injection 2022 023 [email or web address] [facility] [address], [place], [address], 4 11:02:07 meloxicam 15 mg tablet 2022 023 [email or web address] [facility] [address], [place], [address], 3 15:17:46 Patient TargetsNo targets recorded. Patient InstructionsNo instructions recorded. Reason for Referral None Reported. Results Created Date Observation Date Name Description Value Unit Range Abnormal Flag Note LastModifiedBy Organization Detail LastModifiedTime 08/27/2008/24/2021 XR, hand, 2 view No observ ation record ed. [id number] Not Available 01/15/2023 13:54:27 08/29/2008/29/2021 XR, hip + pelvi s, unila teral No observ ation record ed. [id number] [facility] [place] [address], [place], [address], 01/15/2023 13:54:27 08/29/20 21 XR, lumba r spine No observ ation record ed. [id number] [facility] [place] [address], [place], [address], 01/15/2023 13:54:27 10/04/20 22 XR, knee No observ ation record ed. [id number] [facility] [place] [address], [place], [address], 01/15/2023 13:54:27 11/06/20 23 XR, knee No observ ation record ed. [email or web address] [facility] [place] [address], [place], [address], 11/06/2023 15:04:23 Result Notes None recorded. Problems Name Problem SNOMED Code Status Onset Date Resolution Date Notes Provider Name and Address Organization Details Recorded Time Acquired trigger finger 2176973 Active Not Available [facility] 3 13:52:12 Radiothera py follow-up 329647291 Active Not Available [facility] 3 13:52:12 Shoulder joint pain 582864123 Active Not Available [facility] 3 13:52:12 Osteoarthr itis 473174038 Active Not Available [facility] 3 13:52:12 Disorder of bursa of shoulder region 73362118 Active Not Available [facility] 3 13:52:13 Pain of right knee joint 9584504221089 00 Active 2021 Not Available [facility] 3 13:52:13 Osteoarthr itis of right knee joint 1495528584687 00 Active 2022 SALIMA Lund [address] [facility], [facility] [address], [place], [address] , [facility] 15:01:29 Problem Notes None recorded. Procedures Surgical History Date Name Laterality Status Provider Name and Address Organization Details Recorded Time Knee Surgery completed [facility] 11/06/2023 14:22:11 Prostate completed [facility] 11/06/2023 14:22:21 Nose completed [facility] 11/06/2023 14:22:32 Imaging Results None recorded. Procedure Notes None recorded. Medical Equipment None Reported. Allergies No known drug allergies Medications Name Sig Start Date Stop Date Status Note LastModified by Organization Details LastModified Time cyclobenzap rine 10 mg tablet 08/29 completed Not Available Not Available Not Available latanoprost 0.005 % eye drops INSTILL 1 DROP INTO BOTH EYES AT BED TIME active Not Available Not Available No t Available trazodone 50 mg tablet TAKE 1 TABLET BY MOUTH EVERYDAY AT BEDTIME 11/06 completed Not Available Not Available Not Available azithromyci n 250 mg tablet 08/29 completed Not Available Not Available Not Available minocycline 100 mg capsule 08/29 completed Not Available Not Available Not Available meloxicam 15 mg tablet TAKE 1 TABLET BY MOUTH EVERY DAY active Not Available Not Available No t Available lisinopril 20 mg tablet TAKE 1 TABLET BY MOUTH EVERY DAY active Not Available Not Available No t Available bupivacaine HCl 0.5 % (5 mg/mL) injection solution Take 20 mg by injection route. 12/26 completed Not Available Not Available Not Available amlodipine 5 mg tablet TAKE 1 TABLET (5 MG TOTAL) BY MOUTH DAILY. active Not Available Not Available No t Available OneTouch Ultra Test strips USE 1 STRIP IN METER 3 TIMES A DAY TO TEST BLOOD SUGAR active Not Available Not Available No t Available Kenalog 10 mg/mL suspension for injection Take 20 mg by injection route. 12/26 completed [facility]: [phone] Not Available Not Available Not Available hydrocodone 7.5 mg-acetamin ophen 325 mg tablet 08/29 completed Not Available Not Available Not Available cephalexin 500 mg capsule 11/06 completed Not Available Not Available Not Available omeprazole 20 mg capsule,del ayed release TAKE 1 CAPSULE BY MOUTH TWICE A DAY active Not Available Not Available No t Available diclofenac sodium 75 mg tablet,macrina yed release TAKE 1 TABLET BY MOUTH TWICE A DAY active Not Available Not Available No t Available timolol maleate 0.5 % eye drops INSTILL 1 DROP INTO EACH EYE AT BEDTIME active Not Available Not Available No t Available lisinopril 40 mg tablet TAKE 1 TABLET BY MOUTH EVERY DAY active Not Available Not Available No t Available fluticasone propionate 50 mcg/actuati on nasal spray,suspe nsion 08/29 completed Not Available Not Available Not Available metformin ER 500 mg tablet,exte nded release 24 hr TAKE 2 TABLETS BY MOUTH TWICE A DAY active Not Available Not Available No t Available naproxen 500 mg tablet 08/29 completed Not Available Not Available Not Available Ventolin HFA 90 mcg/actuati on aerosol inhaler 08/29 completed Not Available Not Available Not Available rosuvastati n 20 mg tablet TAKE 1 TABLET BY MOUTH EVERYDAY AT BEDTIME active Not Available Not Available No t Available metronidazo le 1 % topical gel 08/29 completed Not Available Not Available Not Available aspirin 2020 active Not Available Not Available Not Avai lable Fish Oil 11/06 completed Not Available Not Available Not Available iron 2020 active Not Available Not Available Not Avai lable Flax Seed Oil 11/06 completed Not Available Not Available Not Available [place] 3 2020 active Not Available Not Available Not Avai lable lutein 2020 active Not Available Not Available Not Avai lable Multivitami ns W/Multimine rals 2020 active Not Available Not Available Not Avai lable Travatan Z 0.004 % eye drops 08/29 completed Not Available Not Available Not Available ropivacaine (PF) 5 mg/mL (0.5 %) injection solution In office injection administe red by the provider 12/26 completed Not Available Not Available Not Available Vascepa 1 gram capsule TAKE 2 CAPSULES (2 G TOTAL) BY MOUTH 2 (TWO) TIMES DAILY. TAKE WITH FOOD. active Not Available Not Available No t Available Aerochamber Plus Flow-Vu,Med ium Mask 08/29 completed Not Available Not Available Not Available OneTouch Ultra2 Meter active Not Available Not Available Not Available OneTouch Delica Plus Lancet 33 gauge USE TO TEST BLOOD SUGAR THREE TIMES DAILY active Not Available Not Available No t Available Vitals Date Recorded Body height Provider Name an d Address Organization Details Last Updated DateTime 12/26/2023 176.53 cm Ivon MlalorysLIZZ [employer] [facility] 12/26/2023 11:01:35 Date Recorded Body mass index (BMI) Body height Body weight Provider Name and Address Organization Details Last Updated DateTime 08/29/2021 33.5 kg/m2 175.26 cm 938190.47 g Not Available [facility] 01/15/2023 13:52:02 Date Recorded Body height Body mass index (BMI) Body weight Provider Name and Address Organization Details Last Updated DateTime 11/06/2023 176.53 cm 34.5 kg/m2 295546.39 g Ivon Maloney INTELLIGENCE SPECIALIST [employer] [facility] 11/06/2023 14:27:35 Social History None recorded. Functional Status Question Answer Note LastModified by Organizat ion Details LastModified Time What is your level of alcohol consumption? Moderate [id number] Information not available 01/15/2023 Mental Status None recorded. Family History Relationship Description Onset Age of this Age Resolved Age Notes LastModified by Organization Details LastModified Time Father Heart disease [id number] Not available 01/15/2023 13:51:43 Father Family history of malignant neoplasm [id number] [id number] Not available 01/15/2023 13:51:43 Mother Family history of malignant neoplasm [id number] Not available 01/15/2023 13:51:43 Mother Hypertensive disorder [id number] Not available 01/15/2023 13:51:43 Brother Family history of malignant neoplasm [email or web address] Not available 2022 14:21:13 Sister Family history of malignant neoplasm [email or web address] Not available 2022 14:21:19 Medical History Condition Response USE OF BLOOD THINNERS Y USE OF NSAIDS Y CANCER: SPECIFY Y Past Encounters Encounter ID Performer Location Encounter Start Date Encounter Closed Date Diagnosis/Indication Diagnosis SNOMED-CT Code Diagnosis ICD10 Code Diagnosis IMO Codes Diagnosis Note [id number] Barron Shipley MD [facility] [place] [address] [place] [address] 08/29/2021 00:00:00 08/29/2021 11:22:26 [id number] Barron Shipley MD [facility] [place] [address] [facility] [address] [place] [address] 10/04/2022 00:00:00 10/04/2022 16:16:40 [id number] SALIMA Lund [facility] [place] [address] [facility] [address] [place] [address] 11/06/2023 14:02:03 11/06/2023 16:22:57 Pain of right knee joint 3828925376 59158 M25.561 Osteoarthr itis of right knee joint 6446241589 15780 M17.11 [id number] Barron Shipley MD [facility] [place] [address] [facility] [place] [address] 12/26/2023 10:44:29 01/05/2024 11:40:29 Pain of right knee joint 0678443470 82885 M25.561 Health Concerns Section Related Observation LastModified by Organization Detai ls LastModified Time None Recorded Concern Status LastModified by Organization Details LastModified Time None Recorded Advance Directives Directive None Recorded Payers Insurance Date Sequence Insurance Name Policy Number Policy Love Covered Member ID Love Member ID Guarantor Name 01/05/2024 1 [facility] (MEDICARE REPLACEMENT/A DVANTAGE - PPO) [id number] Driss Olson [id number] Driss Olson 01/15/2023 [employer] Driss Olson Notes Date Note Type Note Provider Name and Address Organization Details Recorded Time 11/06/2023 text/html Patient returns he has not been seen for a little over a year. He has right knee pain. He has been told previously he has moderately severe osteoarthritis particularly medial compartment he states he has had previous knee arthroscopies x2 for torn menisci. Recently his knees started bother him again he was on meloxicam which helped significantly but after a couple of months he ran out and never called back in for another refill. He would like to have this refilled today. Denies any new trauma or injury to the right knee states he has aching pain mostly medially he also has a slight varus deformity of the right knee. He states sometimes his knee puffs up and swells a bit denies any erythema heat or other signs of infection no locking or catching he has chronic lack of motion where he lacks 3-5 degrees of extension compared to the opposite side. He exercises daily alternates between walking and using a recumbent bike we did talk about proper exercise for an arthritic knee probably would be better off doing something more low impact and stat walking for exercise we talked about this in detail. In the meantime he comes in today requesting further evaluation treatment of his right knee pain as described. He states the pain is about an 8 on a scale 1-10 currently.Past medical history sheet was reviewed and signed on the intake sheet of today's date drug allergies current medications family social history previous surgical history 10 point review of systems was reviewed and discussed in detail today with the Patient. SALIMA Lund [address], [place], [address], [employer] 11/06/2023 15:05:00 12/26/2023 text/html Patient returns. He had a cortisone shot in the right knee November 06, 6 weeks ago. He does not feel the injection helped him very much. His right knee hurts all over he states. His lower back has been bothering him and he has soreness in the lateral right hip which he attributes to limping because the right knee. He quit walking on the treadmill 2 days a week instead he walks mi in his basement for exercise. X-rays of right knee from September 2023 demonstrate narrowing of the medial compartment joint space to less than 1 mm the PA flexion Kenney view so it is almost [id number] that view. Previous x-rays of his right hip from 08/29/2021 showed geee-sk-[id number] osteoarthritis the right hip. His past history is significant for prostate cancer. He does take baby aspirin daily. Barron Shipley MD [address], [place], [address], [employer] 01/04/2024 12:47:11
== END 2025-08-29 07:55 | disposition home or self-care (01) ==
PROVIDERS: PCP Registered Nurse; Visit Provider Orthopaedic Surgery
DX: M25.461 Effusion, right knee (principal); M25.561 Pain in right knee; M79.651 Pain in right thigh; Z96.651 Presence of right artificial knee joint
CPT/HCPCS: 73720; A9577